=== PATIENT | male | born 1955 | race Caucasian/White ===

== ENCOUNTER 2017-08-12 11:16 | Inpatient (IN) | payer MEDICAID, OTHER ==
--- NOTE | 2017-08-12 12:27 | EDPHY ---
H & P Time Seen by Provider: 08/12/17 12:26 HPI/ROS: CHIEF COMPLAINT: Cough, mild dizziness HISTORY OF PRESENT ILLNESS: The patient presents to the ED with a 3 week history of cough, hoarseness some mild dizziness. The patient denies significant past medical history. He takes no regular medications. He is not seen a primary care provider in approximately 6 years. The patient denies fever or, abdominal pain, vomiting or diarrhea. The patient has no history of exertional chest pain or shortness of breath. The patient reports he has been housed for approximately the past 3 years. The patient does have a history of incarceration in 2003. The patient denies any alcohol use. He denies prior history of TB. The patient does report approximately 7 lb of weight loss over the course of this illness. The patient denies additional acute complaints. REVIEW OF SYSTEMS: A comprehensive 10 point review of systems is otherwise negative aside from elements mentioned in the history of present illness. Source: Patient Exam Limitations: No limitations - Medical/Surgical History PMH: Past medical history: Noncontributory - Family History Significant Family History: No pertinent family hx - Social History Smoking Status: Current every day smoker - Physical Exam Exam: General Appearance: Thin male, no acute distress Eyes: Pupils equal and round no pallor or injection ENT, Mouth: Mucous membranes moist Respiratory: There are no retractions, rhonchorous breath sounds left lung field Cardiovascular: Regular rate and rhythm Gastrointestinal: Abdomen is soft and nontender, no masses, bowel sounds normal Neurological: A&O, normal motor function, normal sensory exam, normal cranial nerves Skin: Warm and dry, no rashes Musculoskeletal: Neck is supple nontender Extremities: symmetrical, full range of motion Constitutional: Initial Vital Signs Temperature (C) 37.0 C 08/12/17 13:47 Heart Rate 99 08/12/17 13:47 Respiratory Rate 20 08/12/17 13:47 Blood Pressure 105/84 H 08/12/17 13:47 O2 Sat (%) 90 L 08/12/17 13:47 O2 Delivery Mode Room Air O2 (L/minute) 2 Allergies/Adverse Reactions: No Known Allergies Allergy (Unverified 08/12/17 13:49) Home Medications: Medication Instructions Recorded NK [No Known Home Meds] 08/12/17 Medical Decision Making - Diagnostics EKG Interpretation: EKG: Complete interpretation has been separately recorded in the [facility] archive. Summary impression: Sinus rhythm, rate 96 Imaging Results: Imaging Impressions Chest X-Ray 08/12/17 12:39 Impression: Left lung cavitary pneumonia: Query aspiration, staph pneumonia, active TB? Results called to Dr. Carlo Campos at 1:17 pm. ED Course/Re-evaluation: The patient presents to the ED with a several week history of cough and dizziness. The patient's chest x-ray does demonstrate a fairly significant left -sided pneumonia with air-fluid levels. The patient is nontoxic and stable. He is not hypotensive or tachycardic. The patient has no known history of tuberculosis however this is in the differential diagnosis. The patient was placed in a negative pressure room and had an N95 mask applied. The patient had blood cultures x2 obtained. The patient has been started on Zosyn. Consultation is made with the Internal Medicine service for admission. The patient will be admitted by Dr. Moody Spencer. I will defer to the hospitalist to consulting ID and pulmonary if needed. Initial lactic acid was 2.2. Repeat level is 1.5. The patient will be admitted to the hospital for further care. Differential Diagnosis: Differential diagnosis considered includes asthma, bronchitis, pneumonia, lung abscess, tuberculosis - Data Points Laboratory Results: Laboratory Results 08/12/17 13:25 08/12/17 13:25 08/12/17 08/12/17 08/12/17 13:25 13:25 13:25 WBC RBC Hgb Hct MCV MCH MCHC RDW Plt Count MPV Neut % (Auto) Lymph % (Auto) [place] % (Auto) Eos % (Auto) Baso % (Auto) Nucleat RBC Rel Count Absolute Neuts (auto) Absolute Lymphs (auto) Absolute Monos (auto) Absolute Eos (auto) Absolute Basos (auto) Absolute Nucleated RBC Immature Gran % Seg Neutrophils % Band Neutrophils % Lymphocytes % Monocytes % Immature Gran # Absolute Seg Neuts Absolute Band Neuts Absolute Lymphocytes Absolute Monocytes RBC/WBC/PLT Morphology Platelet Estimate VBG Lactic Acid 2.2 mmol/L H mmol/L (0.7-2.1) Sodium Potassium Chloride Carbon Dioxide Anion Gap BUN Creatinine Estimated GFR Glucose Calcium Lactate Dehydrogenase 694 IU/L H IU/L (313-618) HIV 1&2 Antibody NEGATIVE (NEGATIVE) 10/23/17 10/23/17 13:25 13:25 WBC 23.96 10^3/uL H 10^3/uL (3.80-9.50) RBC 4.36 10^6/uL L 10^6/uL (4.40-6.38) Hgb 13.9 g/dL g/dL (13.7-17.5) Hct 37.4 % L % (40.0-51.0) MCV 85.8 fL fL (81.5-99.8) MCH 31.9 pg pg (27.9-34.1) MCHC 37.2 g/dL H g/dL (32.4-36.7) RDW 13.9 % % (11.5-15.2) Plt Count 431 10^3/uL H 10^3/uL (150-400) MPV 8.7 fL fL (8.7-11.7) Neut % (Auto) Not Reported Lymph % (Auto) Not Reported [place] % (Auto) Not Reported Eos % (Auto) Not Reported Baso % (Auto) Not Reported Nucleat RBC Rel Count 0.0 % % (0.0-0.2) Absolute Neuts (auto) Not Reported Absolute Lymphs (auto) Not Reported Absolute Monos (auto) Not Reported Absolute Eos (auto) Not Reported Absolute Basos (auto) Not Reported Absolute Nucleated RBC 0.00 10^3/uL 10^3/uL (0-0.01) Immature Gran % Not Reported Seg Neutrophils % 88 % % Band Neutrophils % 7 % % Lymphocytes % 4 % % Monocytes % 1 % % Immature Gran # Not Reported Absolute Seg Neuts 21.08 10^/uL H 10^/uL (1.70-6.50) Absolute Band Neuts 1.68 10^3/uL H 10^3/uL (0.00-0.70) Absolute Lymphocytes 0.96 10^3/uL L 10^3/uL (1.00-3.00) Absolute Monocytes 0.24 10^3/uL L 10^3/uL (0.30-0.80) RBC/WBC/PLT Morphology NORMAL (NORMAL) Platelet Estimate ADEQUATE (ADEQ) VBG Lactic Acid Sodium 137 mEq/L mEq/L (134-144) Potassium 3.9 mEq/L mEq/L (3.5-5.2) Chloride 95 mEq/L L mEq/L (97-110) Carbon Dioxide 26 mEq/l mEq/l (22-31) Anion Gap 16 mEq/L mEq/L (8-16) BUN 65 mg/dL H mg/dL (7-23) Creatinine 1.5 mg/dL H mg/dL (0.7-1.3) Estimated GFR 48 Glucose 92 mg/dL mg/dL (70-100) Calcium 9.1 mg/dL mg/dL (8.5-10.4) Lactate Dehydrogenase HIV 1&2 Antibody Medications Given: Discontinued Medications Piperacillin/Tazobactam/Dextrose (Zosyn (Premix)) 100 mls @ 200 mls/hr IV EDNOW ONE PRN Reason: Protocol Stop: 08/12/17 14:19 Last Admin: 08/12/17 14:44 Dose: 100 mls Sodium Chloride (Ns) 1,600 mls @ 3,200 mls/hr 30 ml/kg infuse over 30 min ( 1600 ml) IV EDNOW ONE PRN Reason: Protocol Stop: 08/12/17 15:09 Last Admin: 08/12/17 14:45 Dose: 1,600 mls Clindamycin Phosphate/Dextrose (Cleocin 900 Mg (Premix)) 50 mls @ 100 mls/hr IV Q8HRS MASHA PRN Reason: Protocol Stop: 09/11/17 15:44 Last Admin: 08/12/17 18:34 Dose: Not Given Departure - Departure Disposition: [facility] Inpatient Acute Clinical Impression: Pneumonia Condition: Fair
--- NOTE | 2017-08-12 13:06 | CPEKG ---
Heart Rate: 96 RR Interval: 625 P-R Interval: 128 QRSD Interval: 100 QT Interval: 332 QTC Interval: 420 P [place]: 81 QRS [place]: 78 T Wave [place]: 40 EKG Severity - NORMAL ECG - EKG Impression: SINUS RHYTHM Electronically Signed By: Dixon Campos 12-Aug-2017 15:16:02
[2017-08-12 13:39] LABS: ADD DIFF? YES; ADD MORPH? NO; ADD SCAN? NO; ATYPICAL LYMPHOCYTE FLAG 20 (0-99); FRAGMENT RBC FLAG 10 (0-99); HEMATOCRIT 37.4 % (40.0-51.0); HEMOGLOBIN 13.9 g/dL (13.7-17.5); LEFT SHIFT FLG 50 (0-99); LIPEMIA HEMOLYSIS FLAG 90 (0-99); MEAN CELL HEMOGLOBIN 31.9 pg (27.9-34.1); MEAN CELL HEMOGLOBIN CONCENTR. 37.2 g/dL (32.4-36.7); MEAN CELL VOLUME 85.8 fL (81.5-99.8); MEAN PLATELET VOLUME 8.7 fL (8.7-11.7); PLATELET CLUMPS FLAG 30 (0-99); PLATELET COUNT 431 10^3/uL (150-400); RED BLOOD CELL COUNT 4.36 10^6/uL (4.40-6.38); RED CELL DISTRIBUTION WIDTH 13.9 % (11.5-15.2)
[2017-08-12 13:48] LABS: ANION GAP 16 mEq/L (8-16); CALCIUM 9.1 mg/dL (8.5-10.4); CARBON DIOXIDE 26 mEq/l (22-31); CHLORIDE 95 mEq/L (97-110); CREATININE 1.5 mg/dL (0.7-1.3); GLOMERULAR FILTRATION RATE 48; GLUCOSE 92 mg/dL (70-100); POTASSIUM 3.9 mEq/L (3.5-5.2); SODIUM 137 mEq/L (134-144)
[2017-08-12] MEDS ORDERED: PIPERACILLIN/TAZO 4.5 GM/DEX 100 ML IV ONE (13:50)
[2017-08-12 14:11] LABS: PLATELET ESTIMATE ADEQUATE (ADEQ)
[2017-08-12 14:15] LABS: LACTATE DEHYDROGENASE 694 IU/L (313-618)
[2017-08-12] MEDS ORDERED: NS 1,600 ML IV ONE (14:40)
[2017-08-12] MEDS ORDERED: ONDANSETRON 4 MG/2 ML VIAL IVP PRN (15:41)
[2017-08-12] MEDS ORDERED: ONDANSETRON DISINTEGRATING 4 MG TAB PO PRN (15:41)
[2017-08-12] MEDS ORDERED: ACETAMINOPHEN 325 MG TAB PO PRN (15:41)
[2017-08-12] MEDS ORDERED: NS 1,000 ML IV SCH (15:45)
[2017-08-12] MEDS ORDERED: CLINDAMYCIN 900 MG/DEXTROSE 50 ML IV SCH (15:45)
--- NOTE | 2017-08-12 16:35 | GHP ---
[f rep st] HISTORY AND PHYSICAL DATE OF ADMISSION: 08/12/2017 HISTORY OF PRESENT ILLNESS: The patient is a pleasant 61-year-old gentleman with minimal past medica l history, who presented with 2-1/2 weeks of malaise, cough, night sweats, and fevers. He denies tro uble with eating and coughing. He does not drink alcohol. He has had no blackout episodes. He was incarcerated in 2003. He smokes cigarettes. He has had a 7-pound weight loss. He has been tested f or HIV in the past and has been negative. He did not have hemoptysis. He does not have lymphadenopa thy. He notes some swelling in his legs. REVIEW OF SYSTEMS: Complete 10-point review of systems conducted, negative except as noted in the HP I. PAST MEDICAL HISTORY: None. HOME MEDICATIONS: None. ALLERGIES: None. SOCIAL HISTORY: Works at a local [employer]. Lives at [facility]. FAMILY HISTORY: Parents . PHYSICAL EXAMINATION: VITAL SIGNS: Temp 37, blood pressure 105/84, pulse 99, it was 105 when I was in the room, breathing 20 times a minute, 98% on room air. GENERAL: No acute distress. Thin. HEEN T: Sclerae anicteric. Oropharynx clear. Mucous membranes moist. NECK: Supple without lymphadenop athy or JVD. There is no supraclavicular lymphadenopathy. LUNGS: Show crackles and abnormal breath sounds and decreased breath sounds throughout the left lung. The right lung is clear. HEART: S1, S2, and tachycardiac. ABDOMEN: Soft, nontender, nondistended. LOWER EXTREMITIES: Trace edema bila terally. Calves nontender. SKIN: Without rash. NEUROLOGIC: Nonfocal. LABORATORY DATA: White count 23.96 with a left shift, hematocrit 37, platelets are 431,000. ABG tiffany ws a venous lactate of 2.2. Sodium 137, potassium 3.9, chloride 95, bicarb 26, BUN 65, creatinine 1. 5. LDH is elevated at 694. Chest x-ray, interpreted by me, shows near complete whiteout of the left lung. There are air-fluid levels. As a matter of fact, the apex of the lung has so many air-fluid levels it appears as if there may be bowel up there, but there is not. It is predominantly the poste rior aspect of the left upper and lower lobe. The right lungs are largely clear. EKG, interpreted by me, shows sinus at 96 with normal axis and intervals. No ST or T-wave changes. I discussed case with Dr. Carlo Campos and Dr. Tc Child. ASSESSMENT/PLAN: This is a 61-year-old gentleman who presents with severe left-sided pneumonia. 1. Pneumonia. This is concerning for necrotizing staph pneumonia versus pulmonary abscess. Also in the differential is tuberculosis. My pretest probability is low, but not zero given his times of in carceration and the air-fluid levels. It is also worth considering the patient may have an endobronc hial lesion and probably warrants CAT scan or bronchoscopy at some point during this admission or in rapid followup. I have started the patient on ceftriaxone and clindamycin given the air-fluid levels . I have discussed the possibility of methicillin-resistant Staphylococcus aureus coverage with Dr. Child. He will see the patient and decide. 2. Question tuberculosis. I have written the patient for acid-fast bacilli x3 to be sent. We will place him on respiratory precautions. 3. Sepsis. The patient has a lactate of 2.2 and tachycardia consistent with sepsis. I have ordered a repeat lactic acid for followup. He is not hypotensive. 4. Prophylaxis. Pharmacologic prophylaxis indicated. Will start low-molecular weight heparin. 5. Disposition. Inpatient status. /[id number]/MODL
--- NOTE | 2017-08-12 19:41 | GCON ---
[f rep st] CONSULTATION INPATIENT INFECTIOUS DISEASE CONSULTATION REASON FOR REFERRAL: Left-sided pneumonia. REFERRING PHYSICIAN: Moody Spencer MD HISTORY OF PRESENT ILLNESS: Patient is a 61-year-old male who has had a history of intermittent home lessness and is a chronic tobacco user, who has been housed consistently for the last 3 years. [facility], called EMS for transport to the emergency room today because he was walking a usual distance of a bout a mile and a half and he felt so weak he could not continue. He states he has been feeling wors e and worse over the last 3 weeks. He notes occasional cough and profound fatigue but denies shortne ss of breath. The patient was worked up in the emergency room and found to have a leukocytosis of 24 ,000 with a left shift. Chest x-ray showed a very large left lung infiltrate. Noncontrasted CT scan verified the infiltrate and also delineated [id number] emphysema. No definitive hilar or me diastinal mass was seen. The patient was placed on Zosyn empirically. He will be isolated to rule o ut tuberculosis given his history of homelessness and incarceration approximately 15 years ago. The patient has no known contact or history of tuberculosis. PAST MEDICAL HISTORY: Patient denies. PAST SURGICAL HISTORY: Patient denies. ANTIBIOTICS: Zosyn. ALLERGIES: No known medical allergies. SOCIAL HISTORY: The patient has a history of intermittent homelessness but has been steadily housed for the last 3 years. 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 He is a continual tobacco user and smokes 1 pa ck daily. FAMILY HISTORY: Reviewed but noncontributory. REVIEW OF SYSTEMS: Other than that detailed above in History of Present Illness, comprehensive 10-sy stem review is negative. PHYSICAL EXAMINATION: VITAL SIGNS: Temperature maximum is 37.0, temperature current is 36.8, heart rate is 99, respiratory rate is 16, blood pressure is 109/60, O2 sat is 91% on 2 L. GENERAL: The robert whittaker is a thin older male, in no acute distress. He is not toxic in appearance. He is alert and or iented x3. He has a pleasant demeanor. HEENT: Normocephalic for age. Atraumatic. No scleral icte raphael. No oral lesion or drainage from the nares. Eyes: Lids and conjunctivae within normal limits. Pupils are equal and round bilaterally. NECK: Supple. No meningismus. LUNGS: Distant breath kalen nds bilaterally. Decreased left side versus right. Good effort. HEART: Borderline tachycardic but regular. No murmur, rub, or gallop noted. No significant peripheral edema. ABDOMEN: Soft, nonten charley. No masses. SKIN: Warm and dry to the touch. No rash or lesion. MUSCULOSKELETAL: No muscle belly tenderness is noted. No joint line effusion or arthritis seen. NEURO: Cranial nerves 2-12 se em to be intact. Peripheral sensation seems intact in extremities. LABORATORY DATA: The patient has a CBC dated 08/12/17, shows a white blood cell count of 23.96, hemo globin of 13.9, hematocrit of 37.4, platelet count 431, differential is left-shifted with 88% segment ed neutrophils and 7% band forms. Serum chemistries on 08/12/17, show sodium of 137, potassium of 3. 9, chloride of 95, bicarbonate of 26, BUN of 65, and creatinine 1.5. LDH level is elevated at 694. SEROLOGIC DATA: HIV antibody is negative. MICROBIOLOGIC DATA: Patient has blood cultures dated 08/12/17, which are no growth to date. RADIOLOGIC DATA: Patient has a chest CT without contrast dated 08/12/17, which shows a diffuse left hemothorax pneumonia. No definitive hilar or mediastinal mass is seen. Also shows severe emphysema. ASSESSMENT: Severe left-sided community-acquired pneumonia in patient with underlying severe emphyse ma. Surprisingly, he is able to maintain reasonable O2 saturation levels on minimal oxygen support. Agreed with continued Zosyn monotherapy. We will attempt to obtain a sputum sample and send for nuc lear acid amplification testing at [facility] for tuberculosis rule out. Although, I think this is less likely. In the meantime, we will continue to monitor the patient for clinical improvement. PLAN: 1. Continue Zosyn monotherapy. 2. Continue airborne isolation for tuberculosis. 3. Sputum test to [facility] for DNA amplification to Mycobacterium tuberculosis. 4. Follow clinical improvement. /[id number]/MODL
[2017-08-12] MEDS: PIPERACILLIN/TAZO 3.375 GM/DEX 50 ML IV SCH (21:54)
[2017-08-13] MEDS: PIPERACILLIN/TAZO 3.375 GM/DEX 50 ML IV SCH ×2 (01:42→09:04)
[2017-08-13 04:41] LABS: ADD DIFF? YES; ADD MORPH? NO; ADD SCAN? NO; ATYPICAL LYMPHOCYTE FLAG 40 (0-99); FRAGMENT RBC FLAG 0 (0-99); HEMATOCRIT 33.7 % (40.0-51.0); LEFT SHIFT FLG 30 (0-99); LIPEMIA HEMOLYSIS FLAG 90 (0-99); MEAN CELL HEMOGLOBIN 31.6 pg (27.9-34.1); MEAN CELL HEMOGLOBIN CONCENTR. 35.6 g/dL (32.4-36.7); MEAN CELL VOLUME 88.7 fL (81.5-99.8); MEAN PLATELET VOLUME 8.7 fL (8.7-11.7); PLATELET CLUMPS FLAG 0 (0-99); PLATELET COUNT 309 10^3/uL (150-400); RED CELL DISTRIBUTION WIDTH 13.8 % (11.5-15.2)
[2017-08-13 04:50] LABS: INR 1.19 (0.83-1.16); PROTIME(PATIENT) 15.1 SEC (12.0-15.0)
[2017-08-13 05:02] LABS: ANION GAP 14 mEq/L (8-16); CARBON DIOXIDE 23 mEq/l (22-31); CHLORIDE 102 mEq/L (97-110); CREATININE 1.2 mg/dL (0.7-1.3); GLOMERULAR FILTRATION RATE > 60; GLUCOSE 84 mg/dL (70-100); HYPOCHROMIA 1+; POTASSIUM 3.7 mEq/L (3.5-5.2); SODIUM 139 mEq/L (134-144)
[2017-08-13 05:03] LABS: PLATELET ESTIMATE ADEQUATE (ADEQ)
[2017-08-13 06:30] LABS: COLOR YELLOW; LEUKOCYTE ESTERASE,URINE NEGATIVE (NEGATIVE); NITRITE,URINE NEGATIVE (NEGATIVE)
[2017-08-13] MEDS ORDERED: cefTRIAXone 1 GM in D5W 50 ML IV SCH (09:00)
[2017-08-13] MEDS: ENOXAPARIN 40 MG/0.4 ML SYR SC SCH (09:04)
--- NOTE | 2017-08-13 09:13 | HOSPPROG ---
Hospitalist Progress Note Assessment/Plan: 61 yo M w severe L sided pneumonia sepsis: presnt on admit lactate normalized septic physiology has resolved pneumonia: severe pneumococcal pneumonia on zosyn may be reasonable to transition to ceftriaxone ?TB: radiology made this call primarily on basis of air flid levels suggestive of cavitary lesions these are actually bullae from his sever copd I think it is likely safe to dc TB rule out but will verify w ID CODP: severe start combivent not wheezing, therefore no steroids proph: LMWH dispo: inpt Subjective: blood cultures + for strep pneumo. case d/w dr nevarez. ct images reviewed/interpreted by me Objective: Vital Signs Temp Pulse Resp BP Pulse Ox 36.4 C 76 16 95/55 L 93 08/13/17 07:26 08/13/17 07:26 08/13/17 07:26 08/13/17 07:26 08/13/17 07:26 Laboratory Results 08/13/17 04:18 08/13/17 04:18 08/12/17 08/13/17 08/14/17 05:59 05:59 05:59 Intake Total 1600 Output Total 300 450 Balance 1300 -450 PT 15.1 SEC (12.0-15.0) H 08/13/17 04:18 INR 1.19 (0.83-1.16) H 08/13/17 04:18 - Physical Exam Constitutional: no apparent distress, appears nourished Eyes: PERRL, anicteric sclera Ears, Nose, Mouth, Throat: moist mucous membranes, hearing normal Cardiovascular: regular rate and rhythym, no murmur, rub, or gallop Respiratory: no respiratory distress, other (essentially absent breath sounds on L) Gastrointestinal: normoactive bowel sounds, soft, non-tender abdomen Genitourinary: no bladder fullness, No cr in urethra Skin: warm, normal color Musculoskeletal: full muscle strength, no muscle tenderness Neurologic: AAOx3 ICD10 Worksheet Patient Problems: Problems Problem Status Onset Pneumonia Acute
--- NOTE | 2017-08-13 09:15 | PDMN ---
Medical Necessity Medical necessity: M160 sepsis and other febrile illness -lactate of 2.2, tachycardia, with PNA- concerning for necrotizing staph pna vs. pulm abscess, weakness, leukocytosis, CT shows infiltrate with mod-severe emphysema, R/O TB,
--- NOTE | 2017-08-13 11:09 | PCMIDPN ---
Assessment/Plan: Assessment/Plan: 1. Pneumococcal bacteremia with extensive left lung pneumonia: - CXR and CT chest images reviewed - Currently on zosyn--will d/c - Given positive blood cx 4/4 bottles with GPC in chains/pneumococcus ,will change to Ceftriaxone + vanco until susceptibilites are resulted - If deemed sensitive to ceftraixone then can d/c vanco -will check f/u blood cx in am -records reviewed in [facility]. he has not been to any of the institutions that are a part of that. - HIV negative. - Micro: 08/12/17: blood cx: 4/4 bottles with pneumococcus/GPC in chains 08/12/17: sputum sent to [facility] [place] 3.375gm q6- 08/12/17 Subjective: afebrile. feeling a little better today. /coughing quite a bit. he states he isn 't always able to bring up phelgm. denies bloody sputum. describes it as mostly clear. admits to 16 pound weight loss over 3 weeks associated with drenching night sweats.. denies other sick contacts around him. Objective: Vital Signs Temp Pulse Resp BP Pulse Ox 36.4 C 76 16 95/55 L 93 08/13/17 07:26 08/13/17 07:26 08/13/17 07:26 08/13/17 07:26 08/13/17 07:26 Laboratory Results 08/13/17 04:18 08/13/17 04:18 08/12/17 08/13/17 08/14/17 05:59 05:59 05:59 Intake Total 1600 Output Total 300 450 Balance 1300 -450 - Physical Exam General Appearance: alert, no apparent distress EENT: other (upper adn lower dentures. no thrush) Respiratory: coarse breath sounds (with decreased bs on left) Cardiac/Chest: regular rate, rhythm Extremities: No swelling Abdomen: normal bowel sounds, non-tender, soft, No distended Skin: No erythema ICD10 Worksheet Patient Problems: Problems Problem Status Onset Pneumonia Acute
[2017-08-13] MEDS ORDERED: VANCOMYCIN HCL/NORMAL SALINE 250 ML IV SCH (11:30)
[2017-08-13] MEDS: IPRATROPIUM/ALBUTEROL 4GM MDI IH SCH ×3 (11:44→21:19)
[2017-08-13] MEDS: cefTRIAXone 2 GM in D5W 50 ML IV SCH (12:00)
[2017-08-13] MEDS: VANCOMYCIN HCL/NORMAL SALINE 250 ML IV SCH (14:13)
[2017-08-13] MEDS: NS 1,000 ML IV SCH ×2 (14:14→21:19)
--- NOTE | 2017-08-13 15:13 | ASMTCASEMG ---
Living Arrangements What is your living Answers: Alone arrangement? Who do you live with? Type Of Residence What kind of residence do Answers: House you live in? Discharge Plan Comments Coordination Status Comments Notes: Pt is a 61 y/o man admitted w/ pneumonia. Pt is currently on droplet precaution. PT and OT are recommending home independent. Anticipates that pt will not have any needs at time of d/c. CM available for changes. Date Signed: 08/13/2017 03:12 PM Electronically Signed By:MARINA Lucero
[2017-08-13] MEDS: HYDROmorphONE/DILAUDID 1 MG/ML INJ IVP PRN (16:16)
[2017-08-14] MEDS: VANCOMYCIN HCL/NORMAL SALINE 250 ML IV SCH (00:01)
[2017-08-14] MEDS: NS 1,000 ML IV SCH ×2 (03:20→13:55)
[2017-08-14] MEDS: IPRATROPIUM/ALBUTEROL 4GM MDI IH SCH ×4 (05:41→20:55)
[2017-08-14] MEDS: HYDROmorphONE/DILAUDID 1 MG/ML INJ IVP PRN ×4 (05:53→22:02)
[2017-08-14 06:38] LABS: ADD DIFF? YES; ADD MORPH? NO; ADD SCAN? NO; ATYPICAL LYMPHOCYTE FLAG 40 (0-99); FRAGMENT RBC FLAG 0 (0-99); HEMATOCRIT 35.9 % (40.0-51.0); HEMOGLOBIN 12.7 g/dL (13.7-17.5); LEFT SHIFT FLG 40 (0-99); LIPEMIA HEMOLYSIS FLAG 90 (0-99); MEAN CELL HEMOGLOBIN 32.2 pg (27.9-34.1); MEAN CELL HEMOGLOBIN CONCENTR. 35.4 g/dL (32.4-36.7); MEAN CELL VOLUME 90.9 fL (81.5-99.8); MEAN PLATELET VOLUME 8.9 fL (8.7-11.7); PLATELET CLUMPS FLAG 0 (0-99); PLATELET COUNT 344 10^3/uL (150-400); RED BLOOD CELL COUNT 3.95 10^6/uL (4.40-6.38); RED CELL DISTRIBUTION WIDTH 14.5 % (11.5-15.2)
[2017-08-14 06:49] LABS: ALANINE AMINOTRANSFERASE 37 IU/L (21-72); ALBUMIN 1.8 g/dL (3.5-5.0); ALKALINE PHOSPHATASE 199 IU/L (38-126); ANION GAP 7 mEq/L (8-16); ASPARTATE AMINOTRANSFERASE 43 IU/L (17-59); BILIRUBIN,TOTAL 0.2 mg/dL (0.1-1.4); BILIRUBIN-CONJUGATED 0.2 mg/dL (0.0-0.5); CALCIUM 7.9 mg/dL (8.5-10.4); CARBON DIOXIDE 22 mEq/l (22-31); CHLORIDE 110 mEq/L (97-110); GLOMERULAR FILTRATION RATE > 60; GLUCOSE 79 mg/dL (70-100); POTASSIUM 3.8 mEq/L (3.5-5.2); SODIUM 139 mEq/L (134-144); TOTAL PROTEIN 4.2 g/dL (6.3-8.2)
[2017-08-14 07:09] LABS: PLATELET ESTIMATE ADEQUATE (ADEQ)
[2017-08-14 07:11] LABS: MACROCYTES 1+; POLYCHROMASIA 1+
[2017-08-14] MEDS: ENOXAPARIN 40 MG/0.4 ML SYR SC SCH (08:32)
[2017-08-14] MEDS: cefTRIAXone 2 GM in D5W 50 ML IV SCH (08:32)
[2017-08-14] MEDS: NICOTINE 21 MG/24 HR PATCH TD SCH (08:33)
--- NOTE | 2017-08-14 09:30 | HOSPPROG ---
Hospitalist Progress Note Assessment/Plan: 61 yo M w severe L sided pneumonia sepsis: presnt on admit lactate normalized septic physiology has resolved pneumonia: severe pneumococcal pneumonia ceftriaxone antibiotic day [address] neg for hilar mass will pursue bronchoscopy when TB ruled out ?TB: radiology made this call primarily on basis of air flid levels suggestive of cavitary lesions these are actually bullae from his sever copd I think it is likely safe to dc TB rule out but will verify w ID 1st AFB neg weight loss: check prealbumin ensure started dietary to see 16 lb weight loss likely meet the definition of SPCM CODP: severe start combivent not wheezing, therefore no steroids proph: LMWH dispo: inpt Subjective: case d/w Dr Garcia. 1st AFB neg Objective: Vital Signs Temp Pulse Resp BP Pulse Ox 36.4 C 80 16 104/70 91 L 08/14/17 08:00 08/14/17 08:17 08/14/17 08:17 08/14/17 08:00 08/14/17 08:17 Laboratory Results 08/14/17 04:15 08/14/17 04:15 08/13/17 08/14/17 08/15/17 05:59 05:59 05:59 Intake Total 1600 2075 Output Total 300 450 Balance 1300 1625 PT 15.1 SEC (12.0-15.0) H 08/13/17 04:18 INR 1.19 (0.83-1.16) H 08/13/17 04:18 - Physical Exam Constitutional: no apparent distress, appears nourished Eyes: PERRL, anicteric sclera Ears, Nose, Mouth, Throat: moist mucous membranes, hearing normal Cardiovascular: regular rate and rhythym, no murmur, rub, or gallop Respiratory: no respiratory distress, other (crackles and decreased breath sounds throughout L lung) Gastrointestinal: normoactive bowel sounds, soft, non-tender abdomen Genitourinary: no bladder fullness, No cr in urethra Skin: warm, normal color Musculoskeletal: full muscle strength, no muscle tenderness Neurologic: AAOx3 ICD10 Worksheet Patient Problems: Problems Problem Status Onset Pneumonia Acute
--- NOTE | 2017-08-14 14:43 | PCMIDPN ---
Assessment/Plan: # Severe L sided pneumococcal PNA complicated by bacteremia. Underlying severe COPD. Post susceptible pneumococcus. WBC trending down. --dc vancomycin --continue ceftriaxone --repeat blood cultures collected today and are pending --also r/o TB, continue isolation until TB PCR returns Medications abx #3 Ceftriaxone 2 g IV q.day, # 2 Vancomycin IV Subjective: Patient reports feeling improved., appetite is okay, no diarrhea Objective: Vital Signs Temp Pulse Resp BP Pulse Ox 36.4 C 85 20 104/70 90 L 08/14/17 08:00 08/14/17 11:55 08/14/17 11:55 08/14/17 08:00 08/14/17 11:55 Microbiology 08/14/17 05:50 Mycobacterial Smear (LITO) - Final Sputum, Expectorated 08/14/17 Unknown Mycobacterial Smear (LITO) - Final Sputum, Expectorated Laboratory Results 08/14/17 04:15 08/14/17 04:15 08/13/17 08/14/17 08/15/17 05:59 05:59 05:59 Intake Total 1600 2075 Output Total 300 450 Balance 1300 1625 - Physical Exam General Appearance: alert, no apparent distress, thin EENT: poor dentition Respiratory: crackles (L base), other (decreased bs throughout), No accessory muscle use Cardiac/Chest: regular rate, rhythm Extremities: No pedal edema Abdomen: normal bowel sounds, non-tender, soft Skin: pallor, No rash Neuro/Psych: alert, normal mood/affect, oriented x 3 ICD10 Worksheet Patient Problems: Problems Problem Status Onset Pneumonia Acute
[2017-08-15] MEDS ORDERED: IPRATROPIUM/ALBUTEROL 3 ML DEYVIAL IH PRN (00:04)
[2017-08-15] MEDS ORDERED: IPRATROPIUM/ALBUTEROL 3 ML DEYVIAL ONE (00:28)
--- NOTE | 2017-08-15 02:52 | HOSPPROG ---
Hospitalist Progress Note Assessment/Plan: Cross cover: Called by RN about increasing O2 needs. Patient requiring 8L via facemask to maintain sats. At the time of my evaluation patient was mildly tachypneic with mildly increased work of breathing, not in respiratory distress. No clear wheezing on exam but limited air movement and clear splinting noted with attempted deep breathing. O2 requirement and symptoms improved with duoneb x1. CXR fairly stable compared to prior on my read. I suspect tachypnea and splinting are causing Combivent to be sub-optimal. Will change to scheduled duonebs for now and hold off on starting steroids due to lack of evidence of yaw exacerbation and significant ongoing infectious process. Objective: Vital Signs Temp Pulse Resp BP Pulse Ox 36.5 C 84 19 127/78 H 95 08/14/17 23:44 08/15/17 00:33 08/15/17 00:33 08/14/17 23:44 08/15/17 00:33 Microbiology 08/12/17 14:21 Blood Culture - Final Blood Streptococcus Pneumoniae 08/14/17 05:50 Mycobacterial Smear (LITO) - Final Sputum, Expectorated 08/14/17 Unknown Mycobacterial Smear (LITO) - Final Sputum, Expectorated Laboratory Results 08/14/17 04:15 08/14/17 04:15 08/13/17 08/14/17 08/15/17 05:59 05:59 05:59 Intake Total 1600 2075 460 Output Total 300 450 Balance 1300 1625 460 PT 15.1 SEC (12.0-15.0) H 08/13/17 04:18 INR 1.19 (0.83-1.16) H 08/13/17 04:18 ICD10 Worksheet Patient Problems: Problems Problem Status Onset Pneumonia Acute
[2017-08-15 04:31] LABS: ADD DIFF? YES; ADD MORPH? NO; ADD SCAN? NO; ATYPICAL LYMPHOCYTE FLAG 30 (0-99); FRAGMENT RBC FLAG 0 (0-99); HEMOGLOBIN 11.6 g/dL (13.7-17.5); LEFT SHIFT FLG 30 (0-99); LIPEMIA HEMOLYSIS FLAG 90 (0-99); MEAN CELL HEMOGLOBIN 31.3 pg (27.9-34.1); MEAN CELL HEMOGLOBIN CONCENTR. 34.1 g/dL (32.4-36.7); MEAN CELL VOLUME 91.6 fL (81.5-99.8); MEAN PLATELET VOLUME 8.5 fL (8.7-11.7); PLATELET CLUMPS FLAG 0 (0-99); PLATELET COUNT 304 10^3/uL (150-400); RED BLOOD CELL COUNT 3.71 10^6/uL (4.40-6.38); RED CELL DISTRIBUTION WIDTH 14.4 % (11.5-15.2)
[2017-08-15 04:57] LABS: HYPOCHROMIA 1+; MACROCYTES 1+; PLATELET ESTIMATE ADEQUATE (ADEQ)
[2017-08-15 05:02] LABS: ANION GAP 8 mEq/L (8-16); CALCIUM 7.9 mg/dL (8.5-10.4); CARBON DIOXIDE 24 mEq/l (22-31); CHLORIDE 108 mEq/L (97-110); CREATININE 0.8 mg/dL (0.7-1.3); GLOMERULAR FILTRATION RATE > 60; GLUCOSE 90 mg/dL (70-100); POTASSIUM 3.5 mEq/L (3.5-5.2); SODIUM 140 mEq/L (134-144)
[2017-08-15 05:09] LABS: PREALBUMIN 5.2 mg/dL (17.6-36.0)
[2017-08-15] MEDS ORDERED: IPRATROPIUM/ALBUTEROL 3 ML DEYVIAL IH SCH (06:00)
[2017-08-15] MEDS: HYDROmorphONE/DILAUDID 1 MG/ML INJ IVP PRN ×4 (08:01→20:52)
[2017-08-15] MEDS: cefTRIAXone 2 GM in D5W 50 ML IV SCH (08:03)
[2017-08-15] MEDS: ENOXAPARIN 40 MG/0.4 ML SYR SC SCH (08:03)
[2017-08-15] MEDS: NICOTINE 21 MG/24 HR PATCH TD SCH (08:03)
[2017-08-15] MEDS ORDERED: ALBUTEROL 3 ML DEYVIAL IH PRN (11:04)
--- NOTE | 2017-08-15 11:04 | HOSPPROG ---
Hospitalist Progress Note Assessment/Plan: 61 yo M now with multi-focal b/l PNA sepsis: secondary to pneumococcal PNA with bacteremia lactate normalized septic physiology has resolved pneumonia: severe pneumococcal pneumonia with positive BCxs, had increased O2 needs overnight from 2 LPM to [address] today cont ceftriaxone antibiotic day 02/01 discussed with pulm, bronch in am ?TB: air fluid levels on CT suggestive of cavitary lesions, likely bullae due to emphysema 2/3 AFB neg, can d/c TB r/o weight loss / SPCM: prealbumin low ensure started dietary to see CODP: severe cont duonebs, schedule QID with prn Alb nebs IV solumedrol per pulm will need Rx's at dc and likely home O2 Tobacco abuse: encourage cessation, especially if needs home O2 proph: LMWH dispo: inpt Subjective: Pt feels "15% better" than on admission. Denies fevers/chills. Still with productive cough. Describes himself as a stubborn smoker, has not taken any treatment for his severe copd in past. Does not plan to quit smoking. Objective: Vital Signs Temp Pulse Resp BP Pulse Ox 37.0 C 90 18 122/74 H 93 08/15/17 07:24 08/15/17 07:24 08/15/17 07:24 08/15/17 07:24 08/15/17 08:10 Microbiology 08/14/17 07:35 Blood Culture - Final Blood 08/12/17 14:21 Blood Culture - Final Blood Streptococcus Pneumoniae 08/14/17 05:50 Mycobacterial Smear (LITO) - Final Sputum, Expectorated 08/14/17 Unknown Mycobacterial Smear (LITO) - Final Sputum, Expectorated Laboratory Results 08/15/17 04:23 08/15/17 04:23 08/14/17 08/15/17 08/16/17 05:59 05:59 05:59 Intake Total 2075 460 Output Total 450 Balance 1625 460 PT 15.1 SEC (12.0-15.0) H 08/13/17 04:18 INR 1.19 (0.83-1.16) H 08/13/17 04:18 - Physical Exam Constitutional: chronically ill appearing Eyes: PERRL Ears, Nose, Mouth, Throat: moist mucous membranes Cardiovascular: regular rate and rhythym, no murmur, rub, or gallop Respiratory: no respiratory distress, inspiratory crackles Gastrointestinal: normoactive bowel sounds, soft, non-tender abdomen Skin: warm Musculoskeletal: full muscle strength Neurologic: AAOx3 Psychiatric: interacting appropriately ICD10 Worksheet Patient Problems: Problems Problem Status Onset Pneumonia Acute
[2017-08-15] MEDS ORDERED: IOPAMIDOL (ISOVUE-300) 100 ML BTL ONE (11:27)
[2017-08-15] MEDS: IPRATROPIUM/ALBUTEROL 3 ML DEYVIAL IH SCH ×3 (11:31→21:15)
--- NOTE | 2017-08-15 14:48 | GCON ---
[f rep st] CONSULTATION CHEST CONSULTATION REASON FOR CONSULTATION: Pneumococcal pneumonia, severe chronic obstructive pulmonary disease. HISTORY OF PRESENT ILLNESS: The patient is a very pleasant 61-year-old white male without past medic al history. He was admitted on 08/12/2017 with complaints of malaise, cough and night sweats. He wa s initially admitted and diagnosed with significant pneumonia. His blood cultures were subsequently positive for strep pneumo. Since this hospitalization he has made minimal improvement. He has contin ue to cough excessively and last night required increase in his oxygen requirements. Repeat CT scan of the chest showed no significant improvement in his extensive left-sided pneumonia and a hint of a new right lower lobe pneumonia. PAST MEDICAL HISTORY: None. PAST SURGICAL HISTORY: None. ALLERGIES: No known allergies medications. SOCIAL HISTORY: He is a 50+ pack-year smoker and continues to smoke. No significant alcohol use. W ork history: He works in a local [employer] shop. MEDICATIONS: He is currently not on any medications. PHYSICAL EXAM: VITAL SIGNS: Blood pressure 122/74, pulse 84, respirations 26, temperature 37.0, oxy gen saturation 92% on 4 L. GENERAL: He is a thin, somewhat cachectic appearing 61-year-old white dane williamson who is resting comfortably on supplemental oxygen. HEENT: Eyes: EDU EOMI. Throat shows no angelo thema or tonsillar hypertrophy. NECK: Supple. No cervical adenopathy. HEART: Regular rate and rh ythm with a 2/6 systolic murmur left sternal border without radiation. LUNGS: Diminished breath kalen nds. Increased crackles on the left. There is significant prolongation of the expiratory phase. AB DOMEN: Soft, nontender. Bowel sounds are present in all 4 quadrants. EXTREMITIES: No clubbing, cy anosis, or edema. LABORATORIES: White count 14.4, hemoglobin 11, hematocrit 34, platelet count 304. Sodium 140, potas sium 3.5, chloride 108, CO2 24, BUN 21, creatinine 0.8, glucose is 90. HIV is negative. Blood cultu re positive for strep pneumonia. CT scan of the chest shows extensive bullous emphysema. He has a s mall right-sided pleural effusion. His left-sided pneumonia is mostly unchanged. IMPRESSION: 1. Severe bolus emphysema. 2. Extensive pneumococcal pneumonia. 3. Pleural effusion. RECOMMENDATIONS: 1. Agree with current antibiotic coverage. 2. Perform fiberoptic bronchoscopy tomorrow. 3. Will start intravenous steroids. 4. Continue frequent nebulized treatments. /[id number]/MODL
--- NOTE | 2017-08-15 16:24 | PCMIDPN ---
Assessment/Plan: Assessment: Left-sided pneumonia-with bacteremia secondary to Streptococcus pneumoniae. Patient is doing slightly better on IV ceftriaxone. Still needs significant O2 support. Plan: 1. Continue IV ceftriaxone at current dose. 2. Follow clinical course. 3. Follow up repeat blood cultures. Subjective: Patient is resting comfortably in his hospital bed. On 4 L of oxygen per nasal cannula. States he feels slightly improved. Not much in the way of cough. Still feels very weak. Objective: Ceftriaxone # 2 Vital Signs Temp Pulse Resp BP Pulse Ox 36.9 C 84 18 125/76 H 92 08/15/17 15:51 08/15/17 15:51 08/15/17 15:51 08/15/17 15:51 08/15/17 15:51 Microbiology 08/14/17 07:35 Blood Culture - Final Blood 08/12/17 14:21 Blood Culture - Final Blood Streptococcus Pneumoniae 08/14/17 05:50 Mycobacterial Smear (LITO) - Final Sputum, Expectorated 08/14/17 Unknown Mycobacterial Smear (LITO) - Final Sputum, Expectorated Laboratory Results 08/15/17 04:23 08/15/17 04:23 08/14/17 08/15/17 08/16/17 05:59 05:59 05:59 Intake Total 2075 460 Output Total 450 Balance 1625 460 - Physical Exam General Appearance: WD/WN, alert, no apparent distress, thin Respiratory: lungs clear, normal breath sounds, crackles (Left side), No wheezing Cardiac/Chest: regular rate, rhythm, No tachycardia Skin: normal color, warm/dry, No rash Neuro/Psych: alert, normal mood/affect, oriented x 3 ICD10 Worksheet Patient Problems: Problems Problem Status Onset Pneumonia Acute
[2017-08-15] MEDS: methylPREDNISolone SOD SUCC 125 MG/2 ML VIAL IVP SCH ×2 (17:37→23:47)
[2017-08-16 04:52] LABS: ADD DIFF? YES; ADD MORPH? NO; ADD SCAN? NO; ATYPICAL LYMPHOCYTE FLAG 20 (0-99); FRAGMENT RBC FLAG 0 (0-99); HEMATOCRIT 31.8 % (40.0-51.0); HEMOGLOBIN 11.2 g/dL (13.7-17.5); LEFT SHIFT FLG 30 (0-99); LIPEMIA HEMOLYSIS FLAG 90 (0-99); MEAN CELL HEMOGLOBIN 31.9 pg (27.9-34.1); MEAN CELL HEMOGLOBIN CONCENTR. 35.2 g/dL (32.4-36.7); MEAN CELL VOLUME 90.6 fL (81.5-99.8); MEAN PLATELET VOLUME 8.6 fL (8.7-11.7); PLATELET CLUMPS FLAG 0 (0-99); PLATELET COUNT 341 10^3/uL (150-400); RED BLOOD CELL COUNT 3.51 10^6/uL (4.40-6.38); RED CELL DISTRIBUTION WIDTH 14.2 % (11.5-15.2)
[2017-08-16] MEDS: IPRATROPIUM/ALBUTEROL 3 ML DEYVIAL IH SCH ×4 (05:20→20:56)
[2017-08-16 05:22] LABS: HYPOCHROMIA 1+; PLATELET ESTIMATE ADEQUATE (ADEQ); POLYCHROMASIA 1+; TOXIC GRANULATION PRESENT
[2017-08-16] MEDS: methylPREDNISolone SOD SUCC 125 MG/2 ML VIAL IVP SCH ×3 (06:03→21:36)
[2017-08-16] MEDS: cefTRIAXone 2 GM in D5W 50 ML IV SCH (09:44)
[2017-08-16] MEDS: NICOTINE 21 MG/24 HR PATCH TD SCH (09:45)
--- NOTE | 2017-08-16 09:58 | HOSPPROG ---
Hospitalist Progress Note Assessment/Plan: 61 yo M now with multi-focal b/l PNA sepsis: secondary to pneumococcal PNA with bacteremia lactate normalized septic physiology has resolved pneumococcal bacteremia secondary to community acquired pneumonia: severe pneumococcal pneumonia, currently on [address] yesterday personally reviewed and interpreted- severe bullous emphysema with b/l infiltrates, worse on left cont ceftriaxone antibiotic day 03/03 discussed with pulm, bronch today. weight loss / SPCM: prealbumin low ensure started dietary to see CODP: severe cont duonebs, schedule QID with prn Alb nebs IV solumedrol per pulm, will wean dose a bit, still no wheezing on exam will need Rx's at dc and likely home O2 Tobacco abuse: encourage cessation, especially if needs home O2 proph: LMWH held today for procedure dispo: inpt Subjective: Pt is hungry, NPO for bronch. Still coughing, a little SOB. No CP , no fevers. Objective: Vital Signs Temp Pulse Resp BP Pulse Ox 36.6 C 75 20 122/79 H 93 08/16/17 07:30 08/16/17 07:30 08/16/17 07:30 08/16/17 07:30 08/16/17 07:30 Microbiology 08/14/17 07:35 Blood Culture - Final Blood Laboratory Results 08/16/17 04:33 08/15/17 04:23 08/15/17 08/16/17 08/17/17 05:59 05:59 05:59 Intake Total 460 Balance 460 PT 15.1 SEC (12.0-15.0) H 08/13/17 04:18 INR 1.19 (0.83-1.16) H 08/13/17 04:18 - Physical Exam Constitutional: no apparent distress Eyes: PERRL Ears, Nose, Mouth, Throat: moist mucous membranes Cardiovascular: regular rate and rhythym Respiratory: no respiratory distress, reduced air movement, inspiratory crackles Gastrointestinal: normoactive bowel sounds, soft, non-tender abdomen Skin: warm Musculoskeletal: generalized weakness Neurologic: AAOx3 Psychiatric: interacting appropriately ICD10 Worksheet Patient Problems: Problems Problem Status Onset Pneumonia Acute
[2017-08-16] MEDS: ENOXAPARIN 40 MG/0.4 ML SYR SC SCH (10:21)
[2017-08-16] MEDS ORDERED: fentaNYL 100 MCG/2 ML INJ ONE (14:00)
[2017-08-16] MEDS ORDERED: LIDOCAINE 2% JELLY 5 ML TUBE ONE (14:00)
[2017-08-16] MEDS ORDERED: LIDOCAINE 1% 300 MG/30 ML SDV ONE (14:00)
[2017-08-16] MEDS ORDERED: ALBUTEROL 3 ML DEYVIAL ONE (14:00)
[2017-08-16] MEDS ORDERED: MIDAZOLAM 2 MG/2 ML VIAL ONE (14:00)
[2017-08-16] MEDS ORDERED: NS 500 ML IV ONE (14:07)
--- NOTE | 2017-08-16 14:17 | PDPROPOC ---
Sedation Plan of Care Sedation Plan of Care: vital signs stable, mental status noted, patient educated of risks, benefits, alternatives, patient can tolerate sedation ASA Classification: ASA 2 Planned drugs: fentanyl, midazolam Mallampati Score: Class 2 Mallampati Reference Image: Patient passed 3-3-2 rule?: Yes
--- NOTE | 2017-08-16 14:19 | SOAPPROG ---
SOAP Progress Note Assessment/Plan: Assessment: * COPD * Diffuse Left pneumonia * Resp failure Plan: Bronchoscopy Continue current abx Subjective: Still with some dyspnea Objective: Vital Signs Temp Pulse Resp BP Pulse Ox 37.1 C 79 18 130/83 H 91 L 08/16/17 14:03 08/16/17 14:03 08/16/17 14:03 08/16/17 14:03 08/16/17 14:03 Laboratory Results 08/16/17 04:33 08/15/17 04:23 08/15/17 08/16/17 08/17/17 05:59 05:59 05:59 Intake Total 460 Balance 460 PT 15.1 SEC (12.0-15.0) H 08/13/17 04:18 INR 1.19 (0.83-1.16) H 08/13/17 04:18 Physical Exam - Physical Exam General Appearance: alert, no apparent distress, moderate distress EENT: PERRL/EOMI, pharynx normal Neck: non-tender, full range of motion, supple, normal inspection Respiratory: crackles (increased left), prolonged expiration, No wheezing Cardiac/Chest: normal peripheral pulses, regular rate, rhythm Peripheral Pulses: 2+: carotid (R), carotid (L), femoral (R), femoral (L), dorsalis-pedis (R), dorsalis-pedis (L) Abdomen: normal bowel sounds, non-tender, soft Male Genitalia: deferred Rectal: deferred Skin: normal color, warm/dry Neuro/Psych: no motor/sensory deficits, alert, normal mood/affect, oriented x 3 ICD10 Worksheet Patient Problems: Problems Problem Status Onset Pneumonia Acute
--- NOTE | 2017-08-16 14:33 | PCMIDPN ---
Assessment/Plan: Assessment/Plan: * Invasive pneumococcal disease due to severe left lower lobe pneumonia which may have necrotizing element with small abscess formation within bulla: Repeat blood cultures show clearing of bacteremia. Plans for bronchoscopy later today to assess for any bronchial obstructive lesions. Continue ceftriaxone. Anticipate that patient will need longer of duration of therapy based on air- fluid levels being present and extent of disease. Likely this will extend to 4 weeks in duration with final determination based on clinical course and radiographic findings over time. 08/16/17 14:30 Subjective: Patient feels better without significant cough or chest pain. Objective: Vital Signs Temp Pulse Resp BP Pulse Ox 37.1 C 79 18 130/83 H 91 L 08/16/17 14:03 08/16/17 14:03 08/16/17 14:03 08/16/17 14:03 08/16/17 14:03 Laboratory Results 08/16/17 04:33 08/15/17 04:23 08/15/17 08/16/17 08/17/17 05:59 05:59 05:59 Intake Total 460 Balance 460 Ceftriaxone # 3 Blood cultures 08/14/[address] scan of chest 08/15/2017 with significant left-sided consolidation with air fluid levels present within scattered bulla, right-sided effusion present - Physical Exam General Appearance: alert, no apparent distress, non-toxic EENT: No scleral icterus, No conjunctival petechiae Respiratory: bronchial breath sounds (Lower half of lung field with egophony) Cardiac/Chest: regular rate, rhythm Extremities: No inflammation Abdomen: non-tender, No distended Skin: No embolic lesions ICD10 Worksheet Patient Problems: Problems Problem Status Onset Pneumonia Acute
--- NOTE | 2017-08-16 14:39 | BVPULMO ---
[facility]- Pulmonology Patient Name: Janusz Marmolejo Procedure Date: 08/16/2017 2:17 PM Patient Type: Inpatient Attending MD/ER Physician: Jem Fonseca MD Procedure: Bronchoscopy Indications: Left upper lobe bacterial pneumonia, Left lower lobe bacterial pneumonia, Right lower lobe bacterial pneumonia Providers: Jem Fonseca MD Medicines: Midazolam 5 mg IV, Fentanyl 125 mcg IV, Lidocaine 4% via nebulizer with Albuter ol 2.5 mg, Lidocaine 1% applied to cords 2 mL, Lidocaine 1% subglottic space 4 mL, Oxygen 5 L/min Complications: No immediate complications Procedure: After informed consent, a time out was performed. N95 masks were worn, and the procedure was done in a negative pressure room. The patient was given appropria te topical anesthesia and intravenous sedation. The fiberopic bronchoscope was pas sed via a bite block orally into the larynx and subsequently into the lower trachea bronchial tree. Throughout the procedure, the patient's blood pressure, pulse, and oxygen saturations were monitored continuously. The Bronchoscope (Video) was introduced through the mouth and advanced to the tracheobronchial tree of both lungs. The procedure was accomplished without difficulty. The patient tolerated the procedure well. The total duration of the procedure was 16 minutes. Findings: The nasopharynx/oropharynx appears normal. The larynx appears normal. The vocal cords appear normal. The subglottic space is normal. The trachea is of normal caliber. The hakeem is sharp. The tracheobronchial tree of the right lung was examined to at least the first subsegmental level. Bronchial mucosa and anatomy in the right lung are normal; there are no endobronchial lesions, and no secretion s. Left Lung Abnormalities: Mucous, plugging the airway, was found in the left low er lobe. The mucous was copious and mucopurulent. The underlying mucosa is normal. BAL was performed in the LLL anterior medial segments (B7 & B8) and in the LLL late ral basal segments (B9) of the lung and sent for cell count, bacterial culture, vir al smears & culture, and fungal & AFB analysis and cytology, aerobic culture, AFB analysis & culture and fungal analysis. 60 mL of fluid were instilled. 40 mL we re returned. The return was cloudy and turbid. There were no mucoid plugs in the r eturn fluid. Post Op Diagnosis: - Left upper lobe bacterial pneumonia - Left lower lobe bacterial pneumonia - Right lower lobe bacterial pneumonia - The right lung was normal. - A mucous plug was found in the left lower lobe. - Bronchoalveolar lavage was performed. - Infiltrate Estimated Blood Loss: Estimated blood loss: none. Recommendation: - Await BAL results. - Await BAL results. Attending Participation: I personally performed the entire procedure. Jem Fonseca MD Jem Fonseca MD 08/16/2017 2:39:38 PM This report has been signed electronicallyThomas MD Marian Number of Addenda: 0 Note Initiated On: 08/16/2017 2:17 PM [email or web address]
--- NOTE | 2017-08-16 15:49 | ASMTCMCOM ---
CM Note CM Note Notes: Dc needs unclear, pt will likely be independent but may need IV antibiotics. Pt has been screened for Medicaid, CM w/f. Date Signed: 08/16/2017 03:48 PM Electronically Signed By:Rosi Lacey RN
[2017-08-16] MEDS: oxyCODONE IR 5 MG TAB PO PRN ×2 (18:36→23:01)
[2017-08-17] MEDS: IPRATROPIUM/ALBUTEROL 3 ML DEYVIAL IH SCH ×4 (06:04→21:23)
[2017-08-17] MEDS: oxyCODONE IR 5 MG TAB PO PRN ×3 (06:05→23:04)
[2017-08-17] MEDS: methylPREDNISolone SOD SUCC 125 MG/2 ML VIAL IVP SCH ×2 (06:05→14:18)
--- NOTE | 2017-08-17 08:33 | HOSPPROG ---
Hospitalist Progress Note Assessment/Plan: 61 yo M with severe bullous emphysema a/w multi-focal b/l PNA sepsis: secondary to pneumococcal PNA with bacteremia lactate normalized septic physiology has resolved pneumococcal bacteremia secondary to community acquired pneumonia: severe pneumococcal pneumonia, currently on [address] yesterday 08/15- severe bullous emphysema with b/l infiltrates, worse on left cont ceftriaxone antibiotic day 04/03, though per ID, may require 4 weeks of therapy given bullous involvement bronch yesterday- LLL mucus plugging, BAL Cxs pending CODP: severe cont duonebs, schedule QID with prn Alb nebs change to oral prednisone will need Rx's at dc and likely home O2 weight loss / SPCM: prealbumin low ensure started dietary to see diarrhea: new last night, ?diarrhea assd vs c diff check c diff neuropathy: foot callouses noted on exam, pt with neuropathic pain symptoms start neurontin Tobacco abuse: encourage cessation, especially if needs home O2 proph: resume LMWH dispo: cont inpt. PT/OT. Subjective: Pt feels "crummy". Reports dry cough now, some SOB. No CP. No fevers. Complains of pain/burning and stocking glove sensation in feet. Causes difficulty with ambulation Objective: Vital Signs Temp Pulse Resp BP Pulse Ox 36.6 C 86 18 147/90 H 89 L 08/17/17 07:32 08/17/17 07:32 08/17/17 07:32 08/17/17 07:32 08/17/17 07:32 Microbiology 08/16/17 14:30 Gram Stain - Final Lung Left Lower Lobe - Bronchial Washings Laboratory Results 08/16/17 04:33 08/15/17 04:23 08/16/17 08/17/17 08/18/17 05:59 05:59 05:59 Intake Total 750 Balance 750 PT 15.1 SEC (12.0-15.0) H 08/13/17 04:18 INR 1.19 (0.83-1.16) H 08/13/17 04:18 - Physical Exam Constitutional: chronically ill appearing Eyes: PERRL Ears, Nose, Mouth, Throat: moist mucous membranes Cardiovascular: regular rate and rhythym Respiratory: no respiratory distress, reduced air movement Gastrointestinal: normoactive bowel sounds, soft, non-tender abdomen Skin: warm Musculoskeletal: full muscle strength, other (left foot with callouses) Neurologic: AAOx3 Psychiatric: interacting appropriately ICD10 Worksheet Patient Problems: Problems Problem Status Onset Pneumonia Acute
[2017-08-17] MEDS: NICOTINE 21 MG/24 HR PATCH TD SCH (08:52)
[2017-08-17] MEDS: GABAPENTIN 300 MG CAP PO SCH ×2 (08:52→19:26)
[2017-08-17] MEDS: cefTRIAXone 2 GM in D5W 50 ML IV SCH (08:53)
--- NOTE | 2017-08-17 14:32 | SOAPPROG ---
SOAP Progress Note Assessment/Plan: Assessment: * COPD * Diffuse Left pneumonia * Resp failure-improved Plan: Bronchoscopy Continue current abx Subjective: Feels weak but breathing somewhat better. His cough is reduced. Objective: Vital Signs Temp Pulse Resp BP Pulse Ox 36.7 C 87 16 130/82 H 90 L 08/17/17 11:19 08/17/17 11:19 08/17/17 11:19 08/17/17 11:19 08/17/17 11:19 Microbiology 08/16/17 14:30 Mycobacterial Smear (LITO) - Final Lung Left Lower Lobe - Bronchial Washings 08/16/17 14:30 Gram Stain - Final Lung Left Lower Lobe - Bronchial Washings Laboratory Results 08/16/17 04:33 08/15/17 04:23 08/16/17 08/17/17 08/18/17 05:59 05:59 05:59 Intake Total 750 Balance 750 PT 15.1 SEC (12.0-15.0) H 08/13/17 04:18 INR 1.19 (0.83-1.16) H 08/13/17 04:18 Physical Exam - Physical Exam General Appearance: alert, no apparent distress EENT: PERRL/EOMI, normal ENT inspection Neck: non-tender, full range of motion Respiratory: decreased breath sounds, No respiratory distress, No accessory muscle use, No wheezing Cardiac/Chest: normal peripheral pulses, regular rate, rhythm Peripheral Pulses: 2+: carotid (R), carotid (L), femoral (R), femoral (L), dorsalis-pedis (R), dorsalis-pedis (L) Abdomen: normal bowel sounds, non-tender, soft Male Genitalia: deferred Rectal: deferred Skin: normal color, warm/dry ICD10 Worksheet Patient Problems: Problems Problem Status Onset Pneumonia Acute
--- NOTE | 2017-08-17 15:52 | PCMIDPN ---
Assessment/Plan: Assessment/Plan: * Invasive pneumococcal disease due to severe left lower lobe pneumonia which may have necrotizing element with small abscess formation within bulla: Repeat blood cultures show clearing of bacteremia. Bronchoscopy without endobronchial obstructive findings. Continue ceftriaxone. Pneumococcal isolate is quinolone susceptible which will allow for completion of antibiotic therapy with moxifloxacin or levofloxacin given excellent oral bioavailability. Anticipate 4 weeks of therapy based on severity of consolidative changes and presence of air-fluid levels consistent with small abscesses. Delete 08/17/17 15:49 Subjective: Patient feels better with persistent right-sided pleuritic chest pain. 2 episodes of diarrhea last p.m. but none today. Objective: Vital Signs Temp Pulse Resp BP Pulse Ox 36.5 C 85 22 H 136/74 H 90 L 08/17/17 15:05 08/17/17 15:05 08/17/17 15:05 08/17/17 15:05 08/17/17 15:05 Microbiology 08/16/17 14:30 Mycobacterial Smear (LITO) - Final Lung Left Lower Lobe - Bronchial Washings 08/16/17 14:30 Gram Stain - Final Lung Left Lower Lobe - Bronchial Washings Laboratory Results 08/16/17 04:33 08/15/17 04:23 08/16/17 08/17/17 08/18/17 05:59 05:59 05:59 Intake Total 750 Balance 750 Ceftriaxone # 4 Blood cultures 08/14/2017 no growth BAL Gram stain negative with culture pending - Physical Exam General Appearance: alert, no apparent distress, thin EENT: No thrush Respiratory: crackles (Left base), No respiratory distress Cardiac/Chest: regular rate, rhythm Abdomen: non-tender, No distended ICD10 Worksheet Patient Problems: Problems Problem Status Onset Pneumonia Acute
[2017-08-17] MEDS: TEMAZEPAM 15 MG CAP PO PRN (23:04)
[2017-08-18] MEDS: IPRATROPIUM/ALBUTEROL 3 ML DEYVIAL IH SCH ×5 (06:01→20:00)
[2017-08-18] MEDS: oxyCODONE IR 5 MG TAB PO PRN ×2 (06:22→19:21)
--- NOTE | 2017-08-18 10:44 | WOCRNPDOC ---
WOCRN Advanced Assessment Note - Skin Integrity Problem, Advanced Assess Left Foot Dressing Type: Open to Air Exudate Amount: None Exudate Characteristic(s): None Corry Wound Tissue: Intact, Dry, Calloused Corry Wound Swelling: None Skin Integrity Problem Comment: Two, discrete raised callouses on plantar aspect of patient's L foot, one over the 1st metatarsal and the other over the 5th metatarsal. No fluctuance in either callous, though patient reports mild pain when sites are palpated and significant pain with walking. Periowund skin is dry, flaky, and intact. He says he wears boots, which are evidently putting too much pressure over those bony prominences. I will order Atrac-tain cream w/ urea and AHA to help exfoliate the dry skin on his feet. Going forward, recommend he see a bilingual middle school teacher in the outpatient setting to address these callouses and be evaluated for off-loading footwear. No need for wound care to follow ongoing. Right Medial First Toe Dressing Type: Open to Air Exudate Amount: None Exudate Characteristic(s): None Corry Wound Tissue: Intact, Dry, Calloused Corry Wound Swelling: None Skin Integrity Problem Comment: Intact callous over R medial great toe, with similar attributes as the calloused areas on the L foot. Will initiate same tx w / Atrac-tain.
[2017-08-18] MEDS: cefTRIAXone 2 GM in D5W 50 ML IV SCH ×2 (11:15→11:58)
[2017-08-18] MEDS: NICOTINE 21 MG/24 HR PATCH TD SCH (11:16)
[2017-08-18] MEDS: GABAPENTIN 300 MG CAP PO SCH ×2 (11:16→20:50)
[2017-08-18] MEDS: predniSONE 20 MG TAB PO SCH (11:16)
--- NOTE | 2017-08-18 11:30 | PDINTPN ---
Sprigger Progress Note Assessment/Plan: Assessment: * COPD * Diffuse Left pneumonia * Resp failure-worsening breathlessness and hypoxemia Plan: Continue current antibiotics Agree with transfer to step-down unit Aggressive pulmonary toilet Add Mucomyst Consider BiPAP Try Vapotherm Subjective: More breathless. Still with cough. Objective: Vital Signs Temp Pulse Resp BP Pulse Ox 36.4 C 86 28 H 124/77 H 88 L 08/18/17 07:38 08/18/17 09:49 08/18/17 09:49 08/18/17 07:38 08/18/17 09:49 Microbiology 08/16/17 14:30 Gram Stain - Final Lung Left Lower Lobe - Bronchial Washings Bronchial Washings Culture - Final Kati Dublinensis 08/16/17 14:30 Mycobacterial Smear (LITO) - Final Lung Left Lower Lobe - Bronchial Washings Laboratory Results 08/16/17 04:33 08/15/17 04:23 08/17/17 08/18/17 08/19/17 05:59 05:59 05:59 Intake Total 750 1210 Balance 750 1210 PT 15.1 SEC (12.0-15.0) H 08/13/17 04:18 INR 1.19 (0.83-1.16) H 08/13/17 04:18 Physical Exam - Physical Exam General Appearance: alert, moderate distress EENT: PERRL/EOMI Neck: non-tender, full range of motion Respiratory: crackles (Bibasilar increased on left), prolonged expiration, No wheezing Cardiac/Chest: normal peripheral pulses, regular rate, rhythm Peripheral Pulses: 2+: carotid (R), carotid (L), femoral (R), femoral (L), dorsalis-pedis (R), dorsalis-pedis (L) Abdomen: normal bowel sounds, non-tender, soft Male Genitalia: deferred Rectal: deferred Skin: normal color, warm/dry Neuro/Psych: no motor/sensory deficits, alert, normal mood/affect, oriented x 3 ICD10 Worksheet Patient Problems: Problems Problem Status Onset Pneumonia Acute
--- NOTE | 2017-08-18 11:37 | HOSPPROG ---
Hospitalist Progress Note Assessment/Plan: 61 yo M with severe bullous emphysema a/w multi-focal b/l PNA sepsis: secondary to pneumococcal PNA with bacteremia lactate normalized septic physiology has resolved acute hypoxemic respiratory failure due to severe pneumococcal pneumonia in setting of severe bullous emphysema: increased O2 requirement today, up to 15 LPM to keep sats 90%. CXR this am personally reviewed and interpreted (over- penetrated film), stable to increased left airspace disease. CT 08/15- severe bullous emphysema with b/l infiltrates, worse on left and debris filled bullae. Bronch 08/16- LLL mucus plugging, BAL Cxs pending transfer to ICU start vapotherm, may need bipap add mucomyst increase duonebs to q4h with q2h prn albuterol cont steroids cont ceftriaxone will need home Rxs for inhalers pneumococcal bacteremia: antibiotic day 05/03, per ID, will likely require 4 weeks of therapy given bullous involvement weight loss / SPCM: prealbumin low ensure started dietary to see diarrhea: new last night, ?diarrhea assd vs c diff check c diff neuropathy: foot callouses noted on exam, pt with neuropathic pain symptoms start neurontin Tobacco abuse: encourage cessation, especially if needs home O2 proph: resume LMWH dispo: cont inpt, transfer to ICU. A total of 30 minutes was spent at bedside providing critical care and discussing case with sub-specialist Subjective: Pt has increased WOB today. No fevers. Still coughing. No CP, but endorses SOB. Objective: Vital Signs Temp Pulse Resp BP Pulse Ox 36.4 C 86 28 H 124/77 H 88 L 08/18/17 07:38 08/18/17 09:49 08/18/17 09:49 08/18/17 07:38 08/18/17 09:49 Microbiology 08/16/17 14:30 Gram Stain - Final Lung Left Lower Lobe - Bronchial Washings Bronchial Washings Culture - Final Kati Dublinensis 08/16/17 14:30 Mycobacterial Smear (LITO) - Final Lung Left Lower Lobe - Bronchial Washings Laboratory Results 08/16/17 04:33 08/15/17 04:23 08/17/17 08/18/17 08/19/17 05:59 05:59 05:59 Intake Total 750 1210 Balance 750 1210 PT 15.1 SEC (12.0-15.0) H 08/13/17 04:18 INR 1.19 (0.83-1.16) H 08/13/17 04:18 - Physical Exam Constitutional: chronically ill appearing Eyes: PERRL Ears, Nose, Mouth, Throat: moist mucous membranes Cardiovascular: regular rate and rhythym Respiratory: reduced air movement, expiratory wheeze, inspiratory crackles Gastrointestinal: normoactive bowel sounds, soft, non-tender abdomen Skin: warm Musculoskeletal: full muscle strength Neurologic: AAOx3 Psychiatric: interacting appropriately ICD10 Worksheet Patient Problems: Problems Problem Status Onset Pneumonia Acute
[2017-08-18] MEDS: ACETYLCYSTEINE 10% 30 ML VIAL IH SCH ×2 (12:47→17:05)
--- NOTE | 2017-08-18 14:14 | PCMIDPN ---
Assessment/Plan: Assessment/Plan: * Invasive pneumococcal disease due to severe left lower lobe pneumonia which may have necrotizing element with small abscess formation within bulla: Repeat blood cultures show clearing of bacteremia. Continue ceftriaxone. Plan to complete therapy with oral moxifloxacin or levofloxacin based on susceptibility profile on excellent oral bioavailability. Continue supportive care for respiratory failure. Kati found in BAL does not require therapy as this likely represents colonization. 08/18/17 14:11 Subjective: Patient transferred ICU today for worsening respiratory distress. Feels improved since transfer. Persistent sputum production which is yellow. Objective: Vital Signs Temp Pulse Resp BP Pulse Ox 36.7 C 91 24 H 132/82 H 88 L 08/18/17 12:00 08/18/17 12:00 08/18/17 12:00 08/18/17 12:00 08/18/17 12:00 Microbiology 08/16/17 14:30 Gram Stain - Final Lung Left Lower Lobe - Bronchial Washings Bronchial Washings Culture - Final Kati Dublinensis 08/16/17 14:30 Mycobacterial Smear (LITO) - Final Lung Left Lower Lobe - Bronchial Washings Laboratory Results 08/16/17 04:33 08/15/17 04:23 08/17/17 08/18/17 08/19/17 05:59 05:59 05:59 Intake Total 750 1210 Balance 750 1210 Ceftriaxone # 5 Blood cultures 08/14/2017 no growth BAL with growth of Kati dublensis - Physical Exam General Appearance: alert, no apparent distress, thin EENT: No scleral icterus, No conjunctival petechiae Respiratory: bronchial breath sounds (Left lower lung field), other (Mild increase in respiratory effort) Cardiac/Chest: regular rate, rhythm ICD10 Worksheet Patient Problems: Problems Problem Status Onset Pneumonia Acute
[2017-08-19] MEDS: IPRATROPIUM/ALBUTEROL 3 ML DEYVIAL IH SCH ×6 (00:02→21:07)
[2017-08-19] MEDS: ACETYLCYSTEINE 10% 30 ML VIAL IH SCH ×4 (00:03→17:12)
[2017-08-19] MEDS: oxyCODONE IR 5 MG TAB PO PRN ×5 (00:32→22:35)
[2017-08-19 05:22] LABS: ABSOLUTE IMMATURE GRANULOCYTES 0.13 10^3/uL (0.00-0.10); ADD DIFF? NO; ADD MORPH? NO; ADD SCAN? NO; ATYPICAL LYMPHOCYTE FLAG 0 (0-99); FRAGMENT RBC FLAG 0 (0-99); HEMATOCRIT 30.5 % (40.0-51.0); HEMOGLOBIN 10.7 g/dL (13.7-17.5); LEFT SHIFT FLG 10 (0-99); LIPEMIA HEMOLYSIS FLAG 90 (0-99); MEAN CELL HEMOGLOBIN 32.1 pg (27.9-34.1); MEAN CELL HEMOGLOBIN CONCENTR. 35.1 g/dL (32.4-36.7); MEAN CELL VOLUME 91.6 fL (81.5-99.8); MEAN PLATELET VOLUME 8.5 fL (8.7-11.7); PLATELET CLUMPS FLAG 0 (0-99); PLATELET COUNT 517 10^3/uL (150-400); RED BLOOD CELL COUNT 3.33 10^6/uL (4.40-6.38); RED CELL DISTRIBUTION WIDTH 14.3 % (11.5-15.2)
[2017-08-19] MEDS: NICOTINE 21 MG/24 HR PATCH TD SCH (08:08)
[2017-08-19] MEDS: GABAPENTIN 300 MG CAP PO SCH ×2 (08:10→20:50)
[2017-08-19] MEDS: predniSONE 20 MG TAB PO SCH (08:10)
--- NOTE | 2017-08-19 08:26 | HOSPPROG ---
Hospitalist Progress Note Assessment/Plan: 61 yo M with severe bullous emphysema a/w multi-focal PNA, has developed high O2 needs, currently on 30 LPM vapotherm sepsis: secondary to pneumococcal PNA with bacteremia lactate normalized septic physiology has resolved acute hypoxemic respiratory failure due to pneumococcal pneumonia in setting of severe bullous emphysema: now on high flow O2 with vapotherm, but appears non- toxic and relatively comfortable. CT 08/15-severe bullous emphysema with b/l infiltrates, worse on left with fluid filled bullae, possibly microabscesses. These are not amenable to drainage due to risk of rupture. Bronch 08/16- LLL mucus plugging, BAL Cxs NGTD. repeat CXR this am with persistent opacification of left lung cont vapotherm if respiratory status declines, would try bipap mucomyst added yesterday cont nebs, steroids, atbx will need home Rxs for inhalers pneumococcal bacteremia: antibiotic day 06/17. Per ID, will likely require 4 weeks of therapy given bullous involvement weight loss / SPCM: prealbumin low ensure dietary following diarrhea: c diff neg, likely atbx associated prn loperamide neuropathy: foot callouses noted on exam, pt with neuropathic pain symptoms started neurontin wound consult needs outpt podiatry f/u Tobacco abuse: encourage cessation, especially since anticipating he'll need home O2 proph: resume LMWH dispo: cont inpt, ICU. Subjective: Pt up in bed, appears comfortable despite high O2 needs. He does not c/o SOB or increased WOB. Still having productive cough. No fevers. Reports diarrhea 1-2 times per day. No abdominal pain. Eating fairly well. Objective: Vital Signs Temp Pulse Resp BP Pulse Ox 36.7 C 93 19 132/80 H 80 L 08/19/17 07:38 08/19/17 07:38 08/19/17 07:38 08/19/17 07:38 08/19/17 07:38 Microbiology 08/16/17 14:30 Gram Stain - Final Lung Left Lower Lobe - Bronchial Washings Bronchial Washings Culture - Final Kati Dublinensis 08/16/17 14:30 Mycobacterial Smear (LITO) - Final Lung Left Lower Lobe - Bronchial Washings Laboratory Results 08/19/17 05:15 08/15/17 04:23 08/18/17 08/19/17 08/20/17 05:59 05:59 05:59 Intake Total 1210 725 Balance 1210 725 PT 15.1 SEC (12.0-15.0) H 08/13/17 04:18 INR 1.19 (0.83-1.16) H 08/13/17 04:18 - Physical Exam Constitutional: chronically ill appearing, cachectic Eyes: PERRL Ears, Nose, Mouth, Throat: moist mucous membranes Cardiovascular: regular rate and rhythym Respiratory: no respiratory distress, other (a few scattered crackles L>R, improved air exchange) Gastrointestinal: normoactive bowel sounds, soft, non-tender abdomen Skin: warm Musculoskeletal: generalized weakness Neurologic: AAOx3 Psychiatric: interacting appropriately ICD10 Worksheet Patient Problems: Problems Problem Status Onset Pneumonia Acute
[2017-08-19] MEDS: cefTRIAXone 2 GM in D5W 50 ML IV SCH (08:48)
--- NOTE | 2017-08-19 14:26 | PDINTPN ---
[facility] Progress Note Assessment/Plan: Assessment/plan: 61 M with COPD admitted 08/12 with CAP and severe infiltrates on CXR/CT. Blood cultures grew morales-sensitive Strep and he has been treated with CTX. He underwent unremarkable bronch on 08/16, but O2 requirements increased around for unclear reasons and his LLL infiltrate was more consolidated. * CAP- severe, yet marginally stable. Continue to use flutter valve, mucomyst, duoneb q4 hrs, and OOB as tolerated. Add IS today as well. Not sure vest will provide any additional benefit, and he reported trying it twice and preferred not to use it. * COPD- as above. Remains on prednisone at 60/day for now. * Bacteremia- likely from PNA and repeat Bcx negative. * Subjective: Feels comfortable despite high O2 requirement. Using flutter valve, nebs. Only dry cough at the moment. Objective: Vital Signs Temp Pulse Resp BP Pulse Ox 36.7 C 91 20 99/57 L 92 08/19/17 11:31 08/19/17 13:30 08/19/17 13:30 08/19/17 11:31 08/19/17 13:30 Microbiology 08/14/17 07:30 Blood Culture - Final Blood 08/14/17 07:35 Blood Culture - Final Blood 08/16/17 14:30 Gram Stain - Final Lung Left Lower Lobe - Bronchial Washings Bronchial Washings Culture - Final Kati Dublinensis 08/16/17 14:30 Mycobacterial Smear (LITO) - Final Lung Left Lower Lobe - Bronchial Washings Laboratory Results 08/19/17 05:15 08/15/17 04:23 08/18/17 08/19/17 08/20/17 05:59 05:59 05:59 Intake Total 1210 725 Balance 1210 725 PT 15.1 SEC (12.0-15.0) H 08/13/17 04:18 INR 1.19 (0.83-1.16) H 08/13/17 04:18 Physical Exam - Physical Exam General Appearance: alert, no apparent distress, thin EENT: PERRL/EOMI Neck: supple Respiratory: rhonchi, No respiratory distress Cardiac/Chest: regular rate, rhythm, No edema Abdomen: non-tender, soft, No distended Skin: normal color, warm/dry Lymphatic: no adenopathy Extremities: non-tender, No pedal edema Neuro/Psych: alert, normal mood/affect, oriented x 3 ICD10 Worksheet Patient Problems: Problems Problem Status Onset Pneumonia Acute
--- NOTE | 2017-08-19 15:04 | ASMTCMCOM ---
CM Note CM Note Notes: Patient continues to be on very high levels of O2 and ABX. Therapies have evaluated and feel that patient won't have therapy needs on discharge. Date Signed: 08/19/2017 03:03 PM Electronically Signed By:Corrie Dolan LCSW
--- NOTE | 2017-08-19 18:16 | PCMIDPN ---
Assessment/Plan: Assessment: Left-sided pneumonia-with bacteremia secondary to Streptococcus pneumoniae. Patient is clearly clinically improved at this point on IV ceftriaxone. Still needs significant O2 support. Plan: 1. Continue IV ceftriaxone at current dose. 2. Follow clinical course. 3. Follow up repeat blood cultures. 08/19/17 22:44 Subjective: Patient is resting in his hospital bed watching TV. No complaints. Says that he is starting to feel better but that he gets out of breath trying to move around the room. Objective: Ceftriaxone # 6 Vital Signs Temp Pulse Resp BP Pulse Ox 36.7 C 90 20 127/78 H 95 08/19/17 16:34 08/19/17 17:12 08/19/17 17:12 08/19/17 16:34 08/19/17 17:12 Microbiology 08/14/17 07:30 Blood Culture - Final Blood 08/14/17 07:35 Blood Culture - Final Blood Laboratory Results 08/19/17 05:15 08/15/17 04:23 08/18/17 08/19/17 08/20/17 05:59 05:59 05:59 Intake Total 9366 028 8711 Balance 0409 547 8640 - Physical Exam General Appearance: WD/WN, alert, thin, non-toxic Respiratory: crackles, No lungs clear, No normal breath sounds Cardiac/Chest: regular rate, rhythm, No tachycardia Extremities: non-tender, normal inspection Skin: normal color, warm/dry, No rash Neuro/Psych: alert, normal mood/affect, oriented x 3 ICD10 Worksheet Patient Problems: Problems Problem Status Onset Pneumonia Acute
[2017-08-20] MEDS: ACETYLCYSTEINE 10% 30 ML VIAL IH SCH ×5 (00:44→23:07)
[2017-08-20] MEDS: IPRATROPIUM/ALBUTEROL 3 ML DEYVIAL IH SCH ×7 (00:44→23:06)
[2017-08-20] MEDS: oxyCODONE IR 5 MG TAB PO PRN ×4 (06:04→19:44)
[2017-08-20 06:09] LABS: % IMMATURE GRANULYOCYTES 1.1 % (0.0-1.1); ABSOLUTE IMMATURE GRANULOCYTES 0.14 10^3/uL (0.00-0.10); ADD DIFF? NO; ADD MORPH? NO; ADD SCAN? NO; ATYPICAL LYMPHOCYTE FLAG 10 (0-99); FRAGMENT RBC FLAG 0 (0-99); HEMOGLOBIN 10.6 g/dL (13.7-17.5); LEFT SHIFT FLG 10 (0-99); LIPEMIA HEMOLYSIS FLAG 90 (0-99); MEAN CELL HEMOGLOBIN 31.4 pg (27.9-34.1); MEAN CELL HEMOGLOBIN CONCENTR. 34.2 g/dL (32.4-36.7); MEAN CELL VOLUME 91.7 fL (81.5-99.8); MEAN PLATELET VOLUME 8.4 fL (8.7-11.7); PLATELET CLUMPS FLAG 10 (0-99); PLATELET COUNT 552 10^3/uL (150-400); RED BLOOD CELL COUNT 3.38 10^6/uL (4.40-6.38); RED CELL DISTRIBUTION WIDTH 14.2 % (11.5-15.2)
[2017-08-20 06:50] LABS: ANION GAP 7 mEq/L (8-16); CALCIUM 7.9 mg/dL (8.5-10.4); CARBON DIOXIDE 32 mEq/l (22-31); CHLORIDE 99 mEq/L (97-110); CREATININE 0.6 mg/dL (0.7-1.3); GLOMERULAR FILTRATION RATE > 60; GLUCOSE 75 mg/dL (70-100); POTASSIUM 4.5 mEq/L (3.5-5.2); SODIUM 138 mEq/L (134-144)
[2017-08-20] MEDS: cefTRIAXone 2 GM in D5W 50 ML IV SCH (08:59)
[2017-08-20] MEDS: NICOTINE 21 MG/24 HR PATCH TD SCH (08:59)
[2017-08-20] MEDS: GABAPENTIN 300 MG CAP PO SCH ×2 (08:59→19:44)
[2017-08-20] MEDS: predniSONE 20 MG TAB PO SCH (08:59)
--- NOTE | 2017-08-20 09:27 | HOSPPROG ---
Hospitalist Progress Note Assessment/Plan: 61 yo M w severe L sided pneumonia sepsis: presnt on admit lactate normalized septic physiology has resolved pneumonia: severe pneumococcal pneumonia ceftriaxone antibiotic day 07/18 CT neg for hilar mass has been bronched cough now productive ?TB: ruled out HIV neg weight loss: prealbumin low ensure started dietary to see 16 lb weight loss likely meet the definition of SPCM CODP: severe start combivent rapid wean of steroids neuropathy: neurontin proph: LMWH dispo: inpt Subjective: case discussed w dr orellana Objective: Vital Signs Temp Pulse Resp BP Pulse Ox 36.7 C 84 19 129/78 H 95 08/20/17 07:37 08/20/17 07:37 08/20/17 07:37 08/20/17 07:37 08/20/17 07:37 Microbiology 08/14/17 07:30 Blood Culture - Final Blood 08/14/17 07:35 Blood Culture - Final Blood Laboratory Results 08/20/17 06:00 08/20/17 06:00 08/19/17 08/20/17 08/21/17 05:59 05:59 05:59 Intake Total 725 1500 Balance 725 1500 PT 15.1 SEC (12.0-15.0) H 08/13/17 04:18 INR 1.19 (0.83-1.16) H 08/13/17 04:18 - Physical Exam Constitutional: no apparent distress, appears nourished Eyes: PERRL, anicteric sclera Ears, Nose, Mouth, Throat: moist mucous membranes, hearing normal Cardiovascular: no murmur, rub, or gallop, tachycardia Respiratory: other (R lung clear. L lung w crackles and decreased breath sounds. no wheeze) Gastrointestinal: normoactive bowel sounds, soft, non-tender abdomen Genitourinary: no bladder fullness, No cr in urethra Skin: warm, normal color Musculoskeletal: full muscle strength, no muscle tenderness Neurologic: AAOx3 ICD10 Worksheet Patient Problems: Problems Problem Status Onset Pneumonia Acute
--- NOTE | 2017-08-20 11:32 | PCMIDPN ---
Assessment/Plan: Assessment/Plan: 1. Pneumococcal bacteremia with extensive left lung pneumonia: - CXR and CT chest images reviewed - Currently on ceftraixone - f/u blood cx ngtd -records reviewed in [facility]. he has not been to any of the institutions that are a part of that. - HIV negative. - plan for at least 4 weeks treatment Micro: 08/12/17: blood cx: 01/22 bottles with pneumococcus 08/12/17: sputum sent to [facility] ceftriaxone 2g daily - 08/13/17 s/p zosyn 3.375gm q6- 08/12/17-08/13/17 Subjective: afebril.e sittin in chair. feeling better. still coughing up phlegm. denies abd pain. having loose stools appetite ok. Objective: Vital Signs Temp Pulse Resp BP Pulse Ox 36.7 C 105 H 16 129/78 H 93 08/20/17 07:37 08/20/17 09:20 08/20/17 09:20 08/20/17 07:37 08/20/17 09:20 Microbiology 08/16/17 14:30 Mycobacterial Smear (LITO) - Final Lung Left Lower Lobe - Bronchial Washings 08/14/17 Unknown Mycobacterial Smear (LITO) - Final Sputum, Expectorated 08/14/17 05:50 Mycobacterial Smear (LITO) - Final Sputum, Expectorated 08/14/17 07:30 Blood Culture - Final Blood 08/14/17 07:35 Blood Culture - Final Blood Laboratory Results 08/20/17 06:00 08/20/17 06:00 08/19/17 08/20/17 08/21/17 05:59 05:59 05:59 Intake Total 725 1500 400 Balance 725 1500 400 - Physical Exam General Appearance: alert, no apparent distress Respiratory: coarse breath sounds Cardiac/Chest: regular rate, rhythm Extremities: No swelling Abdomen: normal bowel sounds, non-tender, soft, No distended Skin: No erythema ICD10 Worksheet Patient Problems: Problems Problem Status Onset Pneumonia Acute
--- NOTE | 2017-08-20 16:30 | ASMTCMCOM ---
CM Note CM Note Notes: Andria Callahan [facility], patient's employer called to say that she was concerned about patient's living environment. She reports that patient lives w/a roommate who smokes and that he doesn't smoke outside. She wondered if he might qualify to go to a SNF. Patient "Self Pay" and was screened for Medicaid, may be "pending" at this time. If patient needs IV ABX and O2 he might qualify. If Medications are PO and O2 needs are under 6L, he can probably return home. Patient is also a smoker. He is cooperative and willing to go where he needs to go. Date Signed: 08/20/2017 04:29 PM Electronically Signed By:Corrie Dolan LCSW
--- NOTE | 2017-08-20 16:31 | PDINTPN ---
[facility] Progress Note Assessment/Plan: Assessment/plan: 61 M with COPD admitted 08/12 with CAP and severe infiltrates on CXR/CT. Blood cultures grew morales-sensitive Strep and he has been treated with CTX. He underwent unremarkable bronch on 08/16, but O2 requirements increased around for unclear reasons and his LLL infiltrate was more consolidated. * CAP- severe, yet marginally stable. Continue to use flutter valve, mucomyst, duoneb q4 hrs, and OOB as tolerated. Add IS today as well. Not sure vest will provide any additional benefit, and he reported trying it twice and preferred not to use it. Remains on CTX * COPD- as above. Remains on prednisone at 60/day for now. Remains on vapotherm at 30 lpm/90%, but tolerated reduction to 70% today. Titrate as tolerated. * Bacteremia- likely from PNA and repeat Bcx negative. 4 weeks abx per ID noted * 08/20/17 16:29 Subjective: No complaints. Still dyspnea on little exertion Objective: Vital Signs Temp Pulse Resp BP Pulse Ox 36.9 C 97 20 134/88 H 94 08/20/17 16:00 08/20/17 16:00 08/20/17 16:00 08/20/17 16:00 08/20/17 16:00 Microbiology 08/16/17 14:30 Mycobacterial Smear (LITO) - Final Lung Left Lower Lobe - Bronchial Washings 08/14/17 Unknown Mycobacterial Smear (LITO) - Final Sputum, Expectorated 08/14/17 05:50 Mycobacterial Smear (LITO) - Final Sputum, Expectorated Laboratory Results 08/20/17 06:00 08/20/17 06:00 08/19/17 08/20/17 08/21/17 05:59 05:59 05:59 Intake Total 725 1500 1200 Balance 725 1500 1200 PT 15.1 SEC (12.0-15.0) H 08/13/17 04:18 INR 1.19 (0.83-1.16) H 08/13/17 04:18 Physical Exam - Physical Exam General Appearance: alert, no apparent distress EENT: PERRL/EOMI Neck: supple Respiratory: rhonchi, No respiratory distress, No wheezing Cardiac/Chest: regular rate, rhythm, No edema Abdomen: non-tender, soft, No distended Skin: normal color, warm/dry Lymphatic: no adenopathy Extremities: No pedal edema Neuro/Psych: alert, normal mood/affect, oriented x 3 ICD10 Worksheet Patient Problems: Problems Problem Status Onset Pneumonia Acute
[2017-08-21] MEDS: IPRATROPIUM/ALBUTEROL 3 ML DEYVIAL IH SCH ×6 (04:15→23:47)
[2017-08-21] MEDS: oxyCODONE IR 5 MG TAB PO PRN ×4 (04:59→18:27)
[2017-08-21] MEDS: ACETYLCYSTEINE 10% 30 ML VIAL IH SCH ×4 (05:44→23:48)
[2017-08-21] MEDS: cefTRIAXone 2 GM in D5W 50 ML IV SCH (09:02)
[2017-08-21] MEDS: predniSONE 20 MG TAB PO SCH (09:02)
[2017-08-21] MEDS: NICOTINE 21 MG/24 HR PATCH TD SCH (09:02)
[2017-08-21] MEDS: GABAPENTIN 300 MG CAP PO SCH ×2 (09:02→20:19)
--- NOTE | 2017-08-21 11:31 | HOSPPROG ---
Hospitalist Progress Note Assessment/Plan: # sepsis, POA - resolved # acute on chronic resp failure, slowly improving # pneumococcal pna, severe - rocephin D#08/17 # pneumococcal bacteremia - rocephin # weight loss, likely severe malnutrition - ensure # COPD/chronic resp failure - tobacco cessation discussed # neuropathy - gabapentin Subjective: still occasionally SOB; loose BMs per RN Objective: Vital Signs Temp Pulse Resp BP Pulse Ox 36.4 C 91 22 H 133/83 H 94 08/21/17 08:00 08/21/17 10:25 08/21/17 10:25 08/21/17 08:00 08/21/17 10:25 Microbiology 08/16/17 14:30 Mycobacterial Smear (LITO) - Final Lung Left Lower Lobe - Bronchial Washings 08/14/17 Unknown Mycobacterial Smear (LITO) - Final Sputum, Expectorated 08/14/17 05:50 Mycobacterial Smear (LITO) - Final Sputum, Expectorated Laboratory Results 08/20/17 06:00 08/20/17 06:00 08/20/17 08/21/17 08/22/17 05:59 05:59 05:59 Intake Total 1500 2100 Balance 1500 2100 PT 15.1 SEC (12.0-15.0) H 08/13/17 04:18 INR 1.19 (0.83-1.16) H 08/13/17 04:[address] reviewed - Physical Exam Constitutional: no apparent distress, appears nourished Cardiovascular: regular rate and rhythym, no murmur, rub, or gallop Respiratory: no respiratory distress, other (marked R sided crackles, rhonchi; no wheezes) Gastrointestinal: normoactive bowel sounds, soft, non-tender abdomen, no palpable masses ICD10 Worksheet Patient Problems: Problems Problem Status Onset Pneumonia Acute
[2017-08-21] MEDS: ENOXAPARIN 40 MG/0.4 ML SYR SC SCH (11:32)
[2017-08-21 12:04] LABS: BASE EXCESS 7.7 mEq/L (-2.5-2.5); BICARBONATE 32 mEq/L (22-26); MEASURED OXYGEN SATURATION 90 % (92-95); PCO2 44 mmHg (34-38); PO2 58 mmHg (65-75); TCO2 33 mEq/L (23-27)
--- NOTE | 2017-08-21 13:47 | PDINTPN ---
[facility] Progress Note Assessment/Plan: Assessment/plan: 61 M with COPD admitted 08/12 with CAP and severe infiltrates on CXR/CT. Blood cultures grew morales-sensitive Strep and he has been treated with CTX. He underwent unremarkable bronch on 08/16, but O2 requirements increased around for unclear reasons and his LLL infiltrate was more consolidated. * CAP- severe, yet marginally stable. Continue to use flutter valve, mucomyst, duoneb q4 hrs, IS and OOB as tolerated. Not sure vest will provide any additional benefit, and he reported trying it twice and preferred not to use it. Remains on CTX * COPD with hypoxemia- as above. Resonable to target sat 92-94%, but ABG shows primary metabolic alkalosis and normal CO2 (44; normal range 35-45). If O2 requirement remains stable or continues to improve, consider transfer to floor * Bacteremia- likely from PNA and repeat Bcx negative. 4 weeks abx per ID noted * Subjective: Continues to improve Objective: Vital Signs Temp Pulse Resp BP Pulse Ox 37.1 C 91 16 106/61 93 08/21/17 12:00 08/21/17 12:00 08/21/17 12:00 08/21/17 12:00 08/21/17 12:00 Microbiology 08/16/17 14:30 Mycobacterial Smear (LITO) - Final Lung Left Lower Lobe - Bronchial Washings 08/14/17 Unknown Mycobacterial Smear (LITO) - Final Sputum, Expectorated 08/14/17 05:50 Mycobacterial Smear (LITO) - Final Sputum, Expectorated Laboratory Results 08/20/17 06:00 08/20/17 06:00 08/20/17 08/21/17 08/22/17 05:59 05:59 05:59 Intake Total 1500 2100 Balance 1500 2100 PT 15.1 SEC (12.0-15.0) H 08/13/17 04:18 INR 1.19 (0.83-1.16) H 08/13/17 04:18 Physical Exam - Physical Exam General Appearance: alert, no apparent distress EENT: PERRL/EOMI Neck: supple Respiratory: decreased breath sounds, rales, No wheezing Cardiac/Chest: regular rate, rhythm, No edema Abdomen: non-tender, soft, No distended Skin: normal color, warm/dry Lymphatic: no adenopathy Extremities: No pedal edema Neuro/Psych: alert, normal mood/affect, oriented x 3 ICD10 Worksheet Patient Problems: Problems Problem Status Onset Pneumonia Acute
--- NOTE | 2017-08-21 16:09 | ASMTCMCOM ---
CM Note CM Note Notes: I spoke with patient about discharge planning. He is still not able to articulate what he wants upon d/c but he does understand that he will need 4 weeks total of IV antibiotics and O2 therapy. I explained that he could have these services at home or at a SNF, and patient says that his roommate situation makes home therapy unappealing. Further complicating things is his lack of insurance. A Medicaid application was submitted 08/13, and he will also be screened for termite control servicer Medicaid which he would need for a SNF. I submitted the ULTC 100 form today so that an ticket sales agent from [facility] can screen him for SNF eligibility. Patient agreed to revisit this conversation tomorrow. Date Signed: 08/21/2017 04:08 PM Electronically Signed By:Erma Chaudhry RN
--- NOTE | 2017-08-21 20:28 | PCMIDPN ---
Assessment/Plan: Assessment: Left-sided pneumonia-with bacteremia secondary to Streptococcus pneumoniae. Patient is clearly clinically improved at this point on IV ceftriaxone. Still needs significant O2 support but will wean once ABG obtained. Plan: 1. Continue IV ceftriaxone. 2. Follow clinical course. 3. Follow up repeat blood cultures. 08/19/17 22:44 08/21/17 20:25 Subjective: Patient feels that he is getting better. Less short of breath. No cough. No fever. Objective: ceftriaxone #8 Vital Signs Temp Pulse Resp BP Pulse Ox 36.8 C 103 H 18 115/69 99 08/21/17 19:41 08/21/17 19:41 08/21/17 19:41 08/21/17 19:41 08/21/17 19:41 Laboratory Results 08/20/17 06:00 08/20/17 06:00 08/20/17 08/21/17 08/22/17 05:59 05:59 05:59 Intake Total 1500 2100 1160 Balance 1500 2100 1160 - Physical Exam General Appearance: WD/WN, alert, no apparent distress, thin, non-toxic Respiratory: lungs clear, normal breath sounds, No respiratory distress Cardiac/Chest: regular rate, rhythm, No tachycardia Skin: normal color, warm/dry, No rash Neuro/Psych: alert, normal mood/affect, oriented x 3 ICD10 Worksheet Patient Problems: Problems Problem Status Onset Pneumonia Acute
[2017-08-22] MEDS: ACETYLCYSTEINE 10% 30 ML VIAL IH SCH ×4 (05:14→23:46)
[2017-08-22] MEDS: IPRATROPIUM/ALBUTEROL 3 ML DEYVIAL IH SCH ×7 (05:14→23:46)
[2017-08-22 06:05] LABS: % IMMATURE GRANULYOCYTES 1.7 % (0.0-1.1); ABSOLUTE IMMATURE GRANULOCYTES 0.21 10^3/uL (0.00-0.10); ADD DIFF? NO; ADD MORPH? NO; ADD SCAN? NO; ATYPICAL LYMPHOCYTE FLAG 20 (0-99); FRAGMENT RBC FLAG 0 (0-99); HEMATOCRIT 32.5 % (40.0-51.0); HEMOGLOBIN 10.7 g/dL (13.7-17.5); LEFT SHIFT FLG 10 (0-99); LIPEMIA HEMOLYSIS FLAG 80 (0-99); MEAN CELL HEMOGLOBIN 31.1 pg (27.9-34.1); MEAN CELL HEMOGLOBIN CONCENTR. 32.9 g/dL (32.4-36.7); MEAN CELL VOLUME 94.5 fL (81.5-99.8); MEAN PLATELET VOLUME 8.3 fL (8.7-11.7); PLATELET CLUMPS FLAG 10 (0-99); PLATELET COUNT 629 10^3/uL (150-400); RED BLOOD CELL COUNT 3.44 10^6/uL (4.40-6.38); RED CELL DISTRIBUTION WIDTH 14.5 % (11.5-15.2)
[2017-08-22 06:14] LABS: POTASSIUM 4.8 mEq/L (3.5-5.2)
[2017-08-22 06:15] LABS: ALANINE AMINOTRANSFERASE 49 IU/L (21-72); ALBUMIN 2.1 g/dL (3.5-5.0); ALKALINE PHOSPHATASE 108 IU/L (38-126); ANION GAP 6 mEq/L (8-16); ASPARTATE AMINOTRANSFERASE 30 IU/L (17-59); BILIRUBIN,TOTAL 0.1 mg/dL (0.1-1.4); CALCIUM 8.4 mg/dL (8.5-10.4); CARBON DIOXIDE 38 mEq/l (22-31); CHLORIDE 96 mEq/L (97-110); CREATININE 0.7 mg/dL (0.7-1.3); GLOMERULAR FILTRATION RATE > 60; GLUCOSE 78 mg/dL (70-100); SODIUM 140 mEq/L (134-144); TOTAL PROTEIN 5.2 g/dL (6.3-8.2)
[2017-08-22] MEDS: cefTRIAXone 2 GM in D5W 50 ML IV SCH (09:37)
[2017-08-22] MEDS: NICOTINE 21 MG/24 HR PATCH TD SCH (09:37)
[2017-08-22] MEDS: GABAPENTIN 300 MG CAP PO SCH ×2 (09:38→21:59)
[2017-08-22] MEDS: predniSONE 20 MG TAB PO SCH (09:38)
[2017-08-22] MEDS: ENOXAPARIN 40 MG/0.4 ML SYR SC SCH (09:38)
--- NOTE | 2017-08-22 09:44 | PCMIDPN ---
Assessment/Plan: Assessment/Plan: * Invasive pneumococcal disease due to severe left lower lobe pneumonia which may have necrotizing element with small abscess formation within bulla: Bacteremia has cleared. Continue ceftriaxone with anticipated 4 week course of antibiotic therapy. This could be completed with oral fluoroquinolone if stabilizes. Continue supportive respiratory care. 08/22/17 09:42 Subjective: Patient with less cough although still with some sputum production. Some left- sided pleuritic chest pain present. Objective: Vital Signs Temp Pulse Resp BP Pulse Ox 37 C 111 H 20 121/81 H 91 L 08/22/17 07:55 08/22/17 08:46 08/22/17 08:46 08/22/17 07:55 08/22/17 08:46 Laboratory Results 08/22/17 05:57 08/22/17 05:57 08/21/17 08/22/17 08/23/17 05:59 05:59 05:59 Intake Total 2100 1660 Balance 2100 1660 Ceftriaxone # 9 Laboratory Tests 08/22/17 05:57 Total Bilirubin 0.1 AST 30 ALT 49 Alkaline Phosphatase 108 Albumin 2.1 L - Physical Exam General Appearance: alert, no apparent distress EENT: No scleral icterus, No thrush Respiratory: bronchial breath sounds (Left midlung field and lower lung field) Cardiac/Chest: tachycardia Abdomen: non-tender, No distended ICD10 Worksheet Patient Problems: Problems Problem Status Onset Pneumonia Acute
[2017-08-22] MEDS: oxyCODONE IR 5 MG TAB PO PRN ×2 (09:47→18:03)
--- NOTE | 2017-08-22 10:09 | HOSPPROG ---
Hospitalist Progress Note Assessment/Plan: # sepsis, POA - resolved # acute on chronic resp failure, slowly improving # pneumococcal pna, severe - rocephin D#09/17 - cont pred 20, will taper # pneumococcal bacteremia - rocephin # reactive thrombocytosis # weight loss, likely severe malnutrition - ensure # COPD/chronic resp failure - tobacco cessation discussed # neuropathy - gabapentin # dispo - med surg Subjective: ambulated; still feels SOB Objective: Vital Signs Temp Pulse Resp BP Pulse Ox 37 C 111 H 20 121/81 H 91 L 08/22/17 07:55 08/22/17 08:46 08/22/17 08:46 08/22/17 07:55 08/22/17 08:46 Laboratory Results 08/22/17 05:57 08/22/17 05:57 08/21/17 08/22/17 08/23/17 05:59 05:59 05:59 Intake Total 2100 1660 Balance 2100 1660 PT 15.1 SEC (12.0-15.0) H 08/13/17 04:18 INR 1.19 (0.83-1.16) H 08/13/17 04:18 tele reviewed discussed with Dr Sanders on ICU rounds - Physical Exam Constitutional: no apparent distress, appears nourished Cardiovascular: regular rate and rhythym, no murmur, rub, or gallop, systolic murmur Respiratory: clear to auscultation, bronchial breath sounds (L sided), respiratory distress (mild) Gastrointestinal: normoactive bowel sounds, soft, non-tender abdomen, no palpable masses ICD10 Worksheet Patient Problems: Problems Problem Status Onset Pneumonia Acute
--- NOTE | 2017-08-22 12:58 | PDINTPN ---
[place] Progress Note Assessment/Plan: Assessment/plan: 61 M with COPD admitted 08/12 with CAP and severe infiltrates on CXR/CT. Blood cultures grew morales-sensitive Strep and he has been treated with CTX. He underwent unremarkable bronch on 08/16, but O2 requirements increased around for unclear reasons and his LLL infiltrate was more consolidated. * CAP- severe, yet improving. Continue to use flutter valve, mucomyst, duoneb q4 hrs, IS and OOB as tolerated. Not sure vest will provide any additional benefit, and he reported trying it twice and preferred not to use it. Remains on CTX * COPD with hypoxemia- as above. Reasonable to target sat 92-94%, but ABG shows primary metabolic alkalosis and normal CO2 (44; normal range 35-45) possibly as a SE of prednisone. O2 requirements continue to improve. Agree with floor. * Bacteremia- likely from PNA and repeat Bcx negative. 4 weeks abx per ID noted * 08/22/17 12:56 Subjective: feels well without complaints. Minimal cough Objective: Vital Signs Temp Pulse Resp BP Pulse Ox 36.9 C 97 18 94/51 L 92 08/22/17 11:49 08/22/17 11:49 08/22/17 11:49 08/22/17 11:49 08/22/17 11:49 Laboratory Results 08/22/17 05:57 08/22/17 05:57 08/21/17 08/22/17 08/23/17 05:59 05:59 05:59 Intake Total 2100 1660 Balance 2100 1660 PT 15.1 SEC (12.0-15.0) H 08/13/17 04:18 INR 1.19 (0.83-1.16) H 08/13/17 04:18 Physical Exam - Physical Exam General Appearance: alert, no apparent distress EENT: PERRL/EOMI Neck: supple Respiratory: decreased breath sounds (L>R, but improved), other (tubular BS on left) Cardiac/Chest: regular rate, rhythm, No edema Abdomen: non-tender, soft, No distended Skin: normal color, warm/dry Lymphatic: no adenopathy Extremities: No pedal edema Neuro/Psych: alert, normal mood/affect, oriented x 3 ICD10 Worksheet Patient Problems: Problems Problem Status Onset Pneumonia Acute
[2017-08-23] MEDS: oxyCODONE IR 5 MG TAB PO PRN ×3 (03:42→20:19)
[2017-08-23 04:58] LABS: % IMMATURE GRANULYOCYTES 1.9 % (0.0-1.1); ADD DIFF? NO; ADD MORPH? NO; ADD SCAN? NO; ATYPICAL LYMPHOCYTE FLAG 30 (0-99); FRAGMENT RBC FLAG 0 (0-99); HEMATOCRIT 29.8 % (40.0-51.0); LEFT SHIFT FLG 10 (0-99); LIPEMIA HEMOLYSIS FLAG 80 (0-99); MEAN CELL HEMOGLOBIN 31.7 pg (27.9-34.1); MEAN CELL HEMOGLOBIN CONCENTR. 33.6 g/dL (32.4-36.7); MEAN CELL VOLUME 94.6 fL (81.5-99.8); MEAN PLATELET VOLUME 8.3 fL (8.7-11.7); PLATELET CLUMPS FLAG 0 (0-99); PLATELET COUNT 603 10^3/uL (150-400); RED BLOOD CELL COUNT 3.15 10^6/uL (4.40-6.38); RED CELL DISTRIBUTION WIDTH 14.6 % (11.5-15.2)
[2017-08-23 05:18] LABS: ANION GAP 3 mEq/L (8-16); CALCIUM 8.2 mg/dL (8.5-10.4); CARBON DIOXIDE 37 mEq/l (22-31); CHLORIDE 97 mEq/L (97-110); CREATININE 0.6 mg/dL (0.7-1.3); GLOMERULAR FILTRATION RATE > 60; GLUCOSE 78 mg/dL (70-100); POTASSIUM 4.5 mEq/L (3.5-5.2); SODIUM 137 mEq/L (134-144)
[2017-08-23] MEDS: IPRATROPIUM/ALBUTEROL 3 ML DEYVIAL IH SCH ×5 (06:38→21:38)
[2017-08-23] MEDS: ACETYLCYSTEINE 10% 30 ML VIAL IH SCH ×4 (06:38→21:38)
--- NOTE | 2017-08-23 08:25 | HOSPPROG ---
Hospitalist Progress Note Assessment/Plan: #Acute on chronic hypoxemic resp failure: due to PNA. Cont aggressive pulm toileting -pt will talk with his roommate who is a heavy smoker inside, han since will need O2 at homw #Invasive pneumococcal PNA with necrosis: personally-reviewed CT chest. Cont IV CTX. Will need 4 weeks therapy; hope to change to FQs #Strep pneumo bacteremia: positive cxs 08/12, NGTD since 08/14 #COPD: cont inhalers #Nicotine dependence: patch #Metabolic alkalosis: #Leukocytosis: resolved Diet: regular #DVT ppx: Lovenox #Disp: requires inpt admission with oxygen requirements, IV abx Subjective: SOB with exertion to bathroom. Hard to walk due to pain in feet. Has good appetite Objective: Vital Signs Temp Pulse Resp BP Pulse Ox 36.5 C 83 14 115/84 H 94 08/23/17 07:38 08/23/17 07:38 08/23/17 07:38 08/23/17 07:38 08/23/17 07:38 Laboratory Results 08/23/17 04:42 08/23/17 04:42 08/22/17 08/23/17 08/24/17 05:59 05:59 05:59 Intake Total 1660 650 Balance 1660 650 PT 15.1 SEC (12.0-15.0) H 08/13/17 04:18 INR 1.19 (0.83-1.16) H 08/13/17 04:18 - Physical Exam Constitutional: cachectic Eyes: PERRL Ears, Nose, Mouth, Throat: moist mucous membranes Cardiovascular: regular rate and rhythym, no murmur, rub, or gallop Respiratory: reduced air movement (decreased air movement throughout BL lungs L> R) Gastrointestinal: normoactive bowel sounds, soft, non-tender abdomen Genitourinary: no bladder fullness Skin: warm Musculoskeletal: full muscle strength Neurologic: AAOx3, CN II-XII Intact Psychiatric: interacting appropriately ICD10 Worksheet Patient Problems: Problems Problem Status Onset Pneumonia Acute
[2017-08-23] MEDS: NICOTINE 21 MG/24 HR PATCH TD SCH (10:16)
[2017-08-23] MEDS: GABAPENTIN 300 MG CAP PO SCH ×2 (10:20→20:13)
[2017-08-23] MEDS: predniSONE 20 MG TAB PO SCH (10:20)
[2017-08-23] MEDS: ENOXAPARIN 40 MG/0.4 ML SYR SC SCH (10:20)
[2017-08-23] MEDS: cefTRIAXone 2 GM in D5W 50 ML IV SCH (10:37)
--- NOTE | 2017-08-23 13:36 | PCMIDPN ---
Assessment/Plan: Assessment: Left-sided pneumonia-with bacteremia secondary to Streptococcus pneumoniae. Patient is clearly clinically improved at this point on IV ceftriaxone. Still needs significant O2 support but doing better. Plan: 1. Continue IV ceftriaxone. 2. Follow clinical course. 3. Follow up repeat blood cultures. 08/19/17 22:44 08/21/17 20:25 08/23/17 13:29 Subjective: Patient is resting comfortably in his hospital bed. He notes he is bringing up scant amounts of sputum. No fevers or chills. Tolerating ceftriaxone without issue. Objective: Ceftriaxone # 10 Vital Signs Temp Pulse Resp BP Pulse Ox 36.6 C 89 16 108/72 96 08/23/17 12:55 08/23/17 12:55 08/23/17 12:55 08/23/17 12:55 08/23/17 12:55 Laboratory Results 08/23/17 04:42 08/23/17 04:42 08/22/17 08/23/17 08/24/17 05:59 05:59 05:59 Intake Total 1660 650 Balance 1660 650 - Physical Exam General Appearance: WD/WN, alert, no apparent distress, thin, non-toxic Respiratory: bronchial breath sounds, No lungs clear, No normal breath sounds, No respiratory distress, No crackles Cardiac/Chest: regular rate, rhythm, No tachycardia Extremities: non-tender, normal inspection Skin: normal color, warm/dry, No rash Neuro/Psych: alert, normal mood/affect, oriented x 3 ICD10 Worksheet Patient Problems: Problems Problem Status Onset Pneumonia Acute
--- NOTE | 2017-08-23 14:33 | ASMTCMCOM ---
CM Note CM Note Notes: Pt will likely need SNf at [place]. ULTC submitted and someone from [facility] should be out to evaluate by Saturday. Pt qualifies financially for regular Medicaid. Once approved, he will have his old Medicaid # ([id number]). Pt qualifies for LTC Medicaid but it could be to 90 days before he is approved. Called [facility] about admitting pt and they declined because he does not currently have LTC Medicaid and they do not want to take the financial risk. Date Signed: 08/23/2017 02:32 PM Electronically Signed By:Tisha Shah LCSW
--- NOTE | 2017-08-23 15:48 | ASMTCMCOM ---
CM Note CM Note Notes: Maura from [facility] ([phone]) came to assess pt for LTC Medicaid bed today. She called Case mgmt to state that pt does not meet the criteria for a bed because he is independent with his ADLs. C/M will f/u with pt to discuss his living situation and if he will be able to return home with HC. Pt will likely qualify for regular Medicaid so he will able to get IV ABX in his home if that is the DC plan. Date Signed: 08/23/2017 03:48 PM Electronically Signed By:Tisha Shah LCSW
[2017-08-24] MEDS: IPRATROPIUM/ALBUTEROL 3 ML DEYVIAL IH SCH ×6 (02:07→20:32)
[2017-08-24 05:33] LABS: ANION GAP 4 mEq/L (8-16); CALCIUM 8.4 mg/dL (8.5-10.4); CARBON DIOXIDE 36 mEq/l (22-31); CHLORIDE 98 mEq/L (97-110); CREATININE 0.6 mg/dL (0.7-1.3); GLOMERULAR FILTRATION RATE > 60; GLUCOSE 76 mg/dL (70-100); POTASSIUM 4.9 mEq/L (3.5-5.2); SODIUM 138 mEq/L (134-144)
[2017-08-24] MEDS: ACETYLCYSTEINE 10% 30 ML VIAL IH SCH ×3 (06:28→17:27)
[2017-08-24] MEDS: cefTRIAXone 2 GM in D5W 50 ML IV SCH (10:37)
[2017-08-24] MEDS: NICOTINE 21 MG/24 HR PATCH TD SCH (10:38)
[2017-08-24] MEDS: predniSONE 20 MG TAB PO SCH (10:38)
[2017-08-24] MEDS: GABAPENTIN 300 MG CAP PO SCH ×2 (10:38→20:12)
[2017-08-24] MEDS: ENOXAPARIN 40 MG/0.4 ML SYR SC SCH (10:46)
--- NOTE | 2017-08-24 11:52 | PCMIDPN ---
Assessment/Plan: 1. Invasive necrotizing pneumococcal pneumonia with sepsis: Much improved. Continue ceftriaxone as is while in-house, with plans to transition to oral fluoroquinolone when discharged. Liver function tests on ceftriaxone or fine on August 22. Subjective: In good spirits. Sitting in chair watching the TV. No diarrhea. Still coughing up putrid sputum. Objective: Ceftriaxone 2 g IV daily day 12 Afebrile 94% on 4 L Vital Signs Temp Pulse Resp BP Pulse Ox 36.6 C 100 18 124/79 H 94 08/24/17 07:38 08/24/17 10:55 08/24/17 10:55 08/24/17 07:38 08/24/17 10:55 Laboratory Results 08/23/17 04:42 08/24/17 03:50 08/23/17 08/24/17 08/25/17 05:59 05:59 04:59 Intake Total 650 1700 Balance 650 1700 Blood cultures sterile HIV testing negative - Physical Exam General Appearance: cachetic EENT: other (False teeth), No thrush Respiratory: other (Bronchial breath sounds left base, some crackles right upper lung dee. No wheeze.) Cardiac/Chest: regular rate, rhythm Abdomen: non-tender, soft Skin: No rash ICD10 Worksheet Patient Problems: Problems Problem Status Onset Pneumonia Acute
[2017-08-24] MEDS: oxyCODONE IR 5 MG TAB PO PRN ×2 (13:29→22:35)
--- NOTE | 2017-08-24 15:26 | HOSPPROG ---
Hospitalist Progress Note Assessment/Plan: #Acute on chronic hypoxemic resp failure: due to PNA. Cont aggressive pulm toileting -pt will talk with his roommate who is a heavy smoker inside, han since will need O2 at homw #Invasive pneumococcal PNA with necrosis: personally-reviewed CT chest. Cont IV CTX. Will need 4 weeks therapy; hope to change to FQs #Strep pneumo bacteremia: positive cxs 08/12, NGTD since 08/14 #Urinary hesitancy: new. Check UA. Not on anti-cholinergics #COPD: cont inhalers #Nicotine dependence: patch #Metabolic alkalosis: improved. #Leukocytosis: resolved Diet: regular #DVT ppx: Lovenox #Disp: requires inpt admission with oxygen requirements, IV abx Subjective: cannot completely drain bladder. New symptom here Objective: Vital Signs Temp Pulse Resp BP Pulse Ox 36.6 C 100 18 124/79 H 94 08/24/17 07:38 08/24/17 10:55 08/24/17 10:55 08/24/17 07:38 08/24/17 10:55 Laboratory Results 08/23/17 04:42 08/24/17 03:50 08/23/17 08/24/17 08/25/17 05:59 05:59 04:59 Intake Total 650 1700 Balance 650 1700 PT 15.1 SEC (12.0-15.0) H 08/13/17 04:18 INR 1.19 (0.83-1.16) H 08/13/17 04:18 - Physical Exam Constitutional: no apparent distress Eyes: PERRL Ears, Nose, Mouth, Throat: moist mucous membranes Cardiovascular: regular rate and rhythym, no murmur, rub, or gallop Respiratory: other (decreased BS at left mid-lung to base, diminshed at right base) Genitourinary: no bladder fullness, no bladder tenderness Skin: warm Musculoskeletal: full muscle strength Neurologic: AAOx3, CN II-XII Intact Psychiatric: interacting appropriately ICD10 Worksheet Patient Problems: Problems Problem Status Onset Pneumonia Acute
[2017-08-25] MEDS: IPRATROPIUM/ALBUTEROL 3 ML DEYVIAL IH SCH ×7 (00:21→23:20)
[2017-08-25] MEDS: ACETYLCYSTEINE 10% 30 ML VIAL IH SCH ×5 (00:22→23:17)
[2017-08-25 03:47] LABS: COLOR PALE YELLOW; LEUKOCYTE ESTERASE,URINE NEGATIVE (NEGATIVE); NITRITE,URINE NEGATIVE (NEGATIVE)
[2017-08-25] MEDS: oxyCODONE IR 5 MG TAB PO PRN (04:03)
[2017-08-25 05:09] LABS: ANION GAP 4 mEq/L (8-16); CALCIUM 8.5 mg/dL (8.5-10.4); CARBON DIOXIDE 36 mEq/l (22-31); CHLORIDE 98 mEq/L (97-110); CREATININE 0.6 mg/dL (0.7-1.3); GLOMERULAR FILTRATION RATE > 60; GLUCOSE 71 mg/dL (70-100); POTASSIUM 4.6 mEq/L (3.5-5.2); SODIUM 138 mEq/L (134-144)
[2017-08-25] MEDS: NICOTINE 21 MG/24 HR PATCH TD SCH (09:13)
[2017-08-25] MEDS: GABAPENTIN 300 MG CAP PO SCH ×2 (09:14→20:06)
[2017-08-25] MEDS: predniSONE 20 MG TAB PO SCH (09:14)
[2017-08-25] MEDS: ENOXAPARIN 40 MG/0.4 ML SYR SC SCH (09:14)
[2017-08-25] MEDS: cefTRIAXone 2 GM in D5W 50 ML IV SCH (09:14)
[2017-08-25] MEDS ORDERED: NS 500 ML IV ONE (12:28)
--- NOTE | 2017-08-25 13:47 | ASMTCMCOM ---
CM Note CM Note Notes: Talked to pt about DC plan. Pt understands that he is does not qualify for LTC Medicaid bed per [facility]. Pt has not discussed with his roommate yet that he will needs O2 at home. He does plan to discuss this with his roommate and thinks he would be ok smoking in his bedroom. ID note today indicated that pt may DC on oral ABX. C/M will wait to make referral for IV ABX at home until the DC needs are clear. C/M to follow. Date Signed: 08/25/2017 01:47 PM Electronically Signed By:Tisha Shah LCSW
--- NOTE | 2017-08-25 14:28 | HOSPPROG ---
Hospitalist Progress Note Assessment/Plan: #Acute on chronic hypoxemic resp failure: due to PNA. Cont aggressive pulm toileting -pt will talk with his roommate who is a heavy smoker inside, han since will need O2 at home #Invasive pneumococcal PNA with necrosis: personally-reviewed CT chest. Cont IV CTX. Will need 4 weeks therapy; hope to change to FQs #Strep pneumo bacteremia: positive cxs 08/12, NGTD since 08/14 #Urinary hesitancy: negative UA #COPD: cont inhalers #Nicotine dependence: patch #Metabolic alkalosis: improved. #Leukocytosis: resolved Diet: regular #DVT ppx: Lovenox #Disp: requires inpt admission with oxygen requirements, IV abx Subjective: mild dizziness today Objective: Vital Signs Temp Pulse Resp BP Pulse Ox 36.5 C 92 16 104/68 92 08/25/17 08:59 08/25/17 14:05 08/25/17 13:13 08/25/17 14:05 08/25/17 13:13 Laboratory Results 08/23/17 04:42 08/25/17 04:48 08/24/17 08/25/17 08/26/17 06:59 05:59 05:59 Intake Total Output Total Balance PT 15.1 SEC (12.0-15.0) H 08/13/17 04:18 INR 1.19 (0.83-1.16) H 08/13/17 04:18 - Physical Exam Constitutional: no apparent distress Eyes: PERRL Ears, Nose, Mouth, Throat: moist mucous membranes Cardiovascular: regular rate and rhythym Respiratory: other (dull BS at both bases L>R) Gastrointestinal: normoactive bowel sounds, soft, non-tender abdomen Genitourinary: no bladder fullness Skin: warm Musculoskeletal: full muscle strength Neurologic: AAOx3, CN II-XII Intact Psychiatric: interacting appropriately ICD10 Worksheet Patient Problems: Problems Problem Status Onset Pneumonia Acute
[2017-08-26] MEDS: IPRATROPIUM/ALBUTEROL 3 ML DEYVIAL IH SCH ×5 (05:10→21:21)
[2017-08-26] MEDS: ACETYLCYSTEINE 10% 30 ML VIAL IH SCH (05:11)
[2017-08-26 06:12] LABS: ANION GAP 8 mEq/L (8-16); CALCIUM 8.4 mg/dL (8.5-10.4); CARBON DIOXIDE 31 mEq/l (22-31); CHLORIDE 99 mEq/L (97-110); CREATININE 0.7 mg/dL (0.7-1.3); GLOMERULAR FILTRATION RATE > 60; GLUCOSE 70 mg/dL (70-100); SODIUM 138 mEq/L (134-144)
[2017-08-26] MEDS: oxyCODONE IR 5 MG TAB PO PRN ×2 (08:08→21:36)
[2017-08-26] MEDS: GABAPENTIN 300 MG CAP PO SCH ×2 (08:08→21:33)
[2017-08-26] MEDS: predniSONE 20 MG TAB PO SCH (08:09)
[2017-08-26] MEDS: ENOXAPARIN 40 MG/0.4 ML SYR SC SCH (08:09)
[2017-08-26] MEDS: cefTRIAXone 2 GM in D5W 50 ML IV SCH (08:09)
[2017-08-26] MEDS: NICOTINE 21 MG/24 HR PATCH TD SCH (08:09)
--- NOTE | 2017-08-26 13:44 | PCMIDPN ---
Assessment/Plan: Assessment/Plan: * Invasive pneumococcal disease due to severe left lower lobe pneumonia which may have necrotizing element with small abscess formation within bulla: Continued slow clinical improvement. Now has completed 2 weeks of ceftriaxone. Plan 4 weeks of therapy in total. Will need repeat CT scan of chest prior to completion of antibiotic therapy. Patient can complete therapy with oral levofloxacin once ready for discharge from hospitalist perspective. 08/26/17 13:42 08/26/17 13:43 Subjective: Patient with mild left-sided pleuritic chest pain. Cough has decreased. Able to ambulate on unit. Objective: Vital Signs Temp Pulse Resp BP Pulse Ox 36.7 C 79 14 128/84 H 95 08/26/17 04:27 08/26/17 10:05 08/26/17 10:05 08/26/17 09:03 08/26/17 10:05 Laboratory Results 08/23/17 04:42 08/26/17 05:27 08/25/17 08/26/17 08/27/17 05:59 05:59 05:59 Intake Total 2425 500 Output Total 350 Balance 2425 150 Ceftriaxone # 14 - Physical Exam General Appearance: alert, no apparent distress EENT: No scleral icterus, No thrush Respiratory: bronchial breath sounds (Fdc up left lung field) Cardiac/Chest: regular rate, rhythm Abdomen: non-tender, No distended ICD10 Worksheet Patient Problems: Problems Problem Status Onset Pneumonia Acute
--- NOTE | 2017-08-26 14:18 | HOSPPROG ---
Hospitalist Progress Note Assessment/Plan: #Acute on chronic hypoxemic resp failure: due to PNA. Cont aggressive pulm toileting -pt will talk with his roommate who is a heavy smoker inside, han since will need O2 at home #Invasive pneumococcal PNA with necrosis: personally-reviewed CT chest. Transition to LQ 750mg for 2 weeks from 08/26. May DC tomorrow. FU Dr. Pulido, will need repeat CT #Strep pneumo bacteremia: positive cxs 08/12, NGTD since 08/14 #Urinary hesitancy: negative UA #COPD: cont inhalers #Nicotine dependence: patch #Metabolic alkalosis: improved. #Leukocytosis: resolved Diet: regular #DVT ppx: Lovenox #Disp: requires inpt admission with oxygen requirements, IV abx. Can DC tomorrow Subjective: SOB improved Objective: Vital Signs Temp Pulse Resp BP Pulse Ox 36.7 C 79 14 128/84 H 95 08/26/17 04:27 08/26/17 10:05 08/26/17 10:05 08/26/17 09:03 08/26/17 10:05 Laboratory Results 08/23/17 04:42 08/26/17 05:27 08/25/17 08/26/17 08/27/17 05:59 05:59 05:59 Intake Total 2425 500 Output Total 350 Balance 2425 150 PT 15.1 SEC (12.0-15.0) H 08/13/17 04:18 INR 1.19 (0.83-1.16) H 08/13/17 04:18 - Physical Exam Constitutional: no apparent distress Eyes: PERRL Ears, Nose, Mouth, Throat: moist mucous membranes Cardiovascular: regular rate and rhythym Respiratory: other (bronchial breath sounds left mid-lung to base. Diminshed BS elsewhere) Gastrointestinal: normoactive bowel sounds Genitourinary: no bladder fullness Skin: warm Musculoskeletal: full muscle strength Neurologic: AAOx3 Psychiatric: interacting appropriately ICD10 Worksheet Patient Problems: Problems Problem Status Onset Pneumonia Acute
--- NOTE | 2017-08-26 15:38 | PDHOMEO2F ---
Home Oxygen Face to Face Home Orders: I certify that a physician or a nurse practitioner or physician's executive staff assistant has had a [id number] encounter with this patient on the date of this order due to the diagnosis listed, which relates to the primary reason the patient requires home oxygen. Alternative treatments have been tried, or considered, and deemed ineffective. It is anticipated that supplemental oxygen will result in improvement with treatment. Home oxygen qualifying diagnosis: Strep PNA Home oxygen secondary diagnosis: COPD SpO2 on room air (%): 84 Frequency of home oxygen needed: continuous Home oxygen liters per minute: 3 Home oxygen delivery device: nasal cannula Concentrator: Yes E-tanks for mobility and back up: No I certify that, based on these findings, the home oxygen is medically necessary for this patient for the following length of time. Length of time home oxygen needed: 3 months
[2017-08-26] MEDS: TEMAZEPAM 15 MG CAP PO PRN (21:36)
[2017-08-27] MEDS: IPRATROPIUM/ALBUTEROL 3 ML DEYVIAL IH SCH ×4 (05:26→23:10)
[2017-08-27] MEDS: oxyCODONE IR 5 MG TAB PO PRN ×2 (06:42→21:08)
[2017-08-27] MEDS: cefTRIAXone 2 GM in D5W 50 ML IV SCH (10:12)
[2017-08-27] MEDS: ENOXAPARIN 40 MG/0.4 ML SYR SC SCH (10:13)
[2017-08-27] MEDS: predniSONE 20 MG TAB PO SCH (10:13)
[2017-08-27] MEDS: GABAPENTIN 300 MG CAP PO SCH ×2 (10:13→21:07)
[2017-08-27] MEDS: NICOTINE 21 MG/24 HR PATCH TD SCH (10:27)
--- NOTE | 2017-08-27 16:36 | HOSPPROG ---
Hospitalist Progress Note Assessment/Plan: 61 yo M with hx of COPD presenting with acute #Acute hypoxemic resp failure: secondary to PNA with copd exacerbation. Cont aggressive pulm toileting, working on ambulation, IS, OOB to chair #Invasive pneumococcal PNA with necrosis: personally-reviewed last cxr on 08/19 and will order repeat cxr for the am. Transition to LQ 750mg for 2 weeks from for a planned total [address] Pulido, will need repeat CT as an OP. #Strep pneumo bacteremia: positive cxs 08/12, NGTD since 08/14, abx as above #COPD, severe, with acute exacerbation: cont neb treatments and will need to dc on inhalers as he has none at home, patient would benefit from pulmonary f/u, has severe bullous emphysema bilaterally with 50 pack year smoking hx. #Nicotine dependence: patch # deconditioning: patient concerned about his ability to return home and complete his ADLs, very deconditioned, and relatively frail at baseline, does not appear to be eligible for snf, pt/ot cleared #Leukocytosis: resolved # protein calorie malnutrition: with BMI of 17, appears cachectic on exam and has had unexplained weight loss, dietary has been involved Diet: regular #DVT ppx: Lovenox Dispo: IP status, will dc in the next 1-2 days, would like to wean off of o2 and improve ambulation etc Subjective: no significant overnight events, patient notes that his breathing is better but that he is still very weak, working on ambulation Objective: Vital Signs Temp Pulse Resp BP Pulse Ox 36.9 C 98 18 98/65 L 98 08/27/17 11:53 08/27/17 11:53 08/27/17 11:53 08/27/17 11:53 08/27/17 11:53 Microbiology 08/16/17 14:30 Mycobacterial Smear (LITO) - Final Lung Left Lower Lobe - Bronchial Washings 08/14/17 Unknown Mycobacterial Smear (LITO) - Final Sputum, Expectorated 08/14/17 05:50 Mycobacterial Smear (LITO) - Final Sputum, Expectorated Laboratory Results 08/23/17 04:42 08/26/17 05:27 08/26/17 08/27/17 08/28/17 05:59 05:59 05:59 Intake Total 2425 2300 Output Total 350 Balance 2425 1950 PT 15.1 SEC (12.0-15.0) H 08/13/17 04:18 INR 1.19 (0.83-1.16) H 08/13/17 04:18 awake alert nad anicteric op clear rrr no mrg decreased bs on right and egophony on left soft nt nd no cce warm dry well perfused oriented appropriate - Time Spent With Patient Time Spent with Patient: greater than 35 minutes Time Spent with Patient: Greater than 35 minutes spent on this patients care, greater than 50% of time spent counseling, educating, and coordinating care regarding the above mentioned plan. ICD10 Worksheet Patient Problems: Problems Problem Status Onset Pneumonia Acute
--- NOTE | 2017-08-27 18:33 | ASMTCMCOM ---
CM Note CM Note Notes: Patient previously has had Medicaid and will most likely have this reinstated but it will take approximately three months. [employer], after review said patient does not meet criteria for LTC. At this point it appears patiients only option is to return home back to his apartment. The concern continues to be that he will need O2 and he has a roommate who smoke. This C/M received call from pts employer, Andria Callahan at [employer]. Patient has named her as his MDPOA. She said that she and the staff there want to do what they can to support him with the hope that he will be able to return to work with them. She said that staff there are the only "family: the patient has and are willing to help him with food and other things he might need. She requests a call when he is ready to discharge or when it is clear when this might happen so she can arrange support for him. Her number is [phone]. Dr. Hightower decided patient was not yet ready to disharge home. He will continue to be reassessed for discharge. Case management will follow. Date Signed: 08/27/2017 06:32 PM Electronically Signed By:ZOILA Villanueva
[2017-08-27] MEDS: TEMAZEPAM 15 MG CAP PO PRN (21:07)
[2017-08-28] MEDS: IPRATROPIUM/ALBUTEROL 3 ML DEYVIAL IH SCH ×2 (05:30→11:16)
[2017-08-28] MEDS: NICOTINE 21 MG/24 HR PATCH TD SCH (08:59)
[2017-08-28] MEDS: predniSONE 20 MG TAB PO SCH (08:59)
[2017-08-28] MEDS: GABAPENTIN 300 MG CAP PO SCH ×2 (08:59→21:18)
[2017-08-28] MEDS: ENOXAPARIN 40 MG/0.4 ML SYR SC SCH (09:00)
[2017-08-28] MEDS: cefTRIAXone 2 GM in D5W 50 ML IV SCH (09:29)
--- NOTE | 2017-08-28 11:35 | PCMIDPN ---
Assessment/Plan: Assessment: Left-sided pneumonia-with bacteremia secondary to Streptococcus pneumoniae. Patient is clearly clinically improved at this point on IV ceftriaxone. O2 support needs decreasing but desaturates with effort. Can policy change clerk to po Levaquin to complete a 4 week course once ready for discharge. Plan: 1. Continue IV ceftriaxone. 2. Follow clinical course. Subjective: Patient is resting comfortably in his bed. Denies any new complaints. No SOB. Some slight cough but not very productive. Good appetite. Objective: ceftriaxone # 16 Vital Signs Temp Pulse Resp BP Pulse Ox 36.6 C 86 18 104/61 93 08/28/17 08:10 08/28/17 11:16 08/28/17 11:16 08/28/17 08:10 08/28/17 11:16 Microbiology 08/16/17 14:30 Mycobacterial Smear (LITO) - Final Lung Left Lower Lobe - Bronchial Washings 08/14/17 Unknown Mycobacterial Smear (LITO) - Final Sputum, Expectorated 08/14/17 05:50 Mycobacterial Smear (LITO) - Final Sputum, Expectorated Laboratory Results 08/23/17 04:42 08/26/17 05:27 08/27/17 08/28/17 08/29/17 05:59 05:59 05:59 Intake Total 2300 500 Output Total 350 800 Balance 1950 -300 - Physical Exam General Appearance: WD/WN, alert, no apparent distress, thin, non-toxic Respiratory: lungs clear, No normal breath sounds (bronchial breath sounds on left but improved), No crackles, No stridor, No wheezing Cardiac/Chest: regular rate, rhythm, No tachycardia Extremities: non-tender, normal inspection Skin: normal color, warm/dry, No rash Neuro/Psych: alert, normal mood/affect, oriented x 3 ICD10 Worksheet Patient Problems: Problems Problem Status Onset Pneumonia Acute
[2017-08-28] MEDS: oxyCODONE IR 5 MG TAB PO PRN ×2 (15:09→21:18)
--- NOTE | 2017-08-28 15:32 | HOSPPROG ---
Hospitalist Progress Note Assessment/Plan: 61 yo M with hx of COPD presenting with acute respiratory failure with invasive pneumococcal pna and copd exacerbation #Acute hypoxemic resp failure: secondary to PNA with copd exacerbation. Cont aggressive pulm toileting, working on ambulation, IS, OOB to chair. Patient very reluctant to dc home with supplemental o2 as he will need to pay out of pocket. #Invasive pneumococcal PNA with necrosis: personally-reviewed repeat cxr, improved aeration of the left sided consolidation compared to prior. Plan for 2 weeks of levofloxacin from 08/26 for total 4 weeks of therapy. Will f/u with ID and require repeat CT prior to dc of abx. #Strep pneumo bacteremia: positive cxs 08/12, NGTD since 08/14, abx as above #COPD, severe, with acute exacerbation: patient would benefit from pulmonary f/u , has severe bullous emphysema bilaterally with 50 pack year smoking hx. Will transition to inhalers from nebs given improvement in breathing. Has been on pred 20 since arrival, will decrease to 10mg for 3 days and then 5 for 3 days given prolonged course of 20. #Nicotine dependence: patch # deconditioning: patient concerned about his ability to return home and complete his ADLs, very deconditioned, and relatively frail at baseline, does not appear to be eligible for snf, pt/ot cleared. Will continue to work on his mobility. #Leukocytosis: resolved # protein calorie malnutrition: with BMI of 17, appears cachectic on exam and has had unexplained weight loss, dietary has been involved Diet: regular #DVT ppx: Lovenox Dispo: IP status, will dc in the next 1-2 days, would like to wean off of o2 and improve ambulation etc Subjective: no significant overnight events, patient notes he is still very fatigued and feels weak but otherwise feels the same or perhaps slightly better than prior Objective: Vital Signs Temp Pulse Resp BP Pulse Ox 36.6 C 86 18 104/61 93 08/28/17 08:10 08/28/17 11:16 08/28/17 11:16 08/28/17 08:10 08/28/17 11:16 Microbiology 08/16/17 14:30 Mycobacterial Smear (LITO) - Final Lung Left Lower Lobe - Bronchial Washings 08/14/17 Unknown Mycobacterial Smear (LITO) - Final Sputum, Expectorated 08/14/17 05:50 Mycobacterial Smear (LITO) - Final Sputum, Expectorated Laboratory Results 08/23/17 04:42 08/26/17 05:27 08/27/17 08/28/17 08/29/17 05:59 05:59 05:59 Intake Total 2300 500 Output Total 350 800 Balance 1950 -300 PT 15.1 SEC (12.0-15.0) H 08/13/17 04:18 INR 1.19 (0.83-1.16) H 08/13/17 04:18 awake alert nad anicteric op clear rrr no mrg decreased bs scattered rhonchi on left soft nt nd no cce warm dry well perfused oriented appropriate ICD10 Worksheet Patient Problems: Problems Problem Status Onset Pneumonia Acute
[2017-08-28] MEDS ORDERED: predniSONE 20 MG TAB PO SCH (15:33)
[2017-08-28] MEDS: IPRATROPIUM/ALBUTEROL 4GM MDI IH SCH ×2 (15:56→20:18)
--- NOTE | 2017-08-28 16:54 | ASMTCMCOM ---
CM Note CM Note Notes: Pt will DC home on oral ABX. Pt discussed need for home O2 today with his roommate who visited. Pt will benefit from HC RN/OT. [facility] agreed to take pt while Medicaid pending. Per [employer], pt should be reviewed and approved for Medicaid soon. C/M will continue to follow. Date Signed: 08/28/2017 04:53 PM Electronically Signed By:Tisha Shah LCSW
[2017-08-28] MEDS: TEMAZEPAM 15 MG CAP PO PRN (21:17)
[2017-08-29] MEDS: IPRATROPIUM/ALBUTEROL 4GM MDI IH SCH ×4 (05:18→21:36)
[2017-08-29] MEDS: GABAPENTIN 300 MG CAP PO SCH ×2 (09:52→21:01)
[2017-08-29] MEDS: predniSONE 10 MG TAB PO SCH (09:53)
[2017-08-29] MEDS: ENOXAPARIN 40 MG/0.4 ML SYR SC SCH (09:53)
[2017-08-29] MEDS: NICOTINE 21 MG/24 HR PATCH TD SCH (09:57)
--- NOTE | 2017-08-29 11:01 | HOSPPROG ---
Hospitalist Progress Note Assessment/Plan: 61 yo M w severe L sided pneumonia sepsis: presnt on admit lactate normalized septic physiology has resolved pneumonia: severe pneumococcal pneumonia ceftriaxone antibiotic day switched to levofloxacin yesterday CT neg for hilar mass has been bronched cough now productive cytology neg ?TB: ruled out HIV neg weight loss: prealbumin low ensure started dietary to see 16 lb weight loss likely meet the definition of SPCM CODP: severe start combivent rapid wean of steroids neuropathy: neurontin proph: LMWH dispo: inpt Subjective: 08/28 cxr much improved, still w L sided air space disease (interp by me). case d/w dr tristan Objective: Vital Signs Temp Pulse Resp BP Pulse Ox 36.6 C 105 H 18 132/77 H 85 L 08/29/17 07:20 08/29/17 10:31 08/29/17 10:29 08/29/17 07:20 08/29/17 10:31 Laboratory Results 08/23/17 04:42 08/26/17 05:27 08/28/17 08/29/17 08/30/17 05:59 05:59 05:59 Intake Total 500 1650 350 Output Total 800 Balance -300 1650 350 PT 15.1 SEC (12.0-15.0) H 08/13/17 04:18 INR 1.19 (0.83-1.16) H 08/13/17 04:18 - Physical Exam Constitutional: no apparent distress, appears nourished Eyes: PERRL, anicteric sclera Ears, Nose, Mouth, Throat: moist mucous membranes, hearing normal Cardiovascular: regular rate and rhythym, no murmur, rub, or gallop Respiratory: no respiratory distress, other (improved L sided exam), No no rales or rhonchi Gastrointestinal: normoactive bowel sounds, soft, non-tender abdomen Genitourinary: no bladder fullness, No cr in urethra Skin: warm, normal color Musculoskeletal: full muscle strength Neurologic: AAOx3 Psychiatric: interacting appropriately ICD10 Worksheet Patient Problems: Problems Problem Status Onset Pneumonia Acute
--- NOTE | 2017-08-29 14:31 | ASMTCMCOM ---
CM Note CM Note Notes: Chart reviewed. Met with patient to review dc POC. [facility] to accept patient and Dr. Arrieta to accept care of patient, Patient will need home oxygen. Appointment scheduled at Dr. Green on SaturdaySeptember 04 at 4:30 pm. Call to [facility] to alert them of PCP. Call to [facility] in [place] [phone]. Per retail wireless sales representative Erika, we can fax orders to them, call them and they will send a person here to set up the patient with home oxygen services. CM to follow. Date Signed: 08/29/2017 02:17 PM Electronically Signed By:Elinor Jeong RN
[2017-08-29] MEDS: oxyCODONE IR 5 MG TAB PO PRN (21:01)
[2017-08-29] MEDS: TEMAZEPAM 15 MG CAP PO PRN (21:02)
[2017-08-30] MEDS: IPRATROPIUM/ALBUTEROL 4GM MDI IH SCH ×2 (05:51→08:19)
[2017-08-30 07:26] VITALS: BP 113/78; TEMP 98.3
[2017-08-30] MEDS: oxyCODONE IR 5 MG TAB PO PRN (08:16)
--- NOTE | 2017-08-30 09:31 | PDHOMEO2F ---
Home Oxygen Face to Face Home Orders: I certify that a physician or a nurse practitioner or physician's senior assistant manager has had a srby-af-jgum encounter with this patient on the date of this order due to the diagnosis listed, which relates to the primary reason the patient requires home oxygen. Alternative treatments have been tried, or considered, and deemed ineffective. It is anticipated that supplemental oxygen will result in improvement with treatment. Home oxygen qualifying diagnosis: severe pneumococcal pneumonia Home oxygen secondary diagnosis: emphysema SpO2 on room air (%): 82 Frequency of home oxygen needed: continuous Home oxygen liters per minute: 2 Home oxygen delivery device: nasal cannula Concentrator: No E-tanks for mobility and back up: Yes If ordering portable O2, is the patient mobile in the home?: Yes I certify that, based on these findings, the home oxygen is medically necessary for this patient for the following length of time. Length of time home oxygen needed: 99 years
[2017-08-30] MEDS: GABAPENTIN 300 MG CAP PO SCH (09:36)
--- NOTE | 2017-08-30 09:36 | PDIAF ---
- Diagnosis Diagnosis: pneumonia Code Status: Full Code - Medication Management Discharge Medications: Medications to Continue on Transfer NK [No Known Home Meds] 08/12/17 [Last Taken Unknown] Discharge Medications: Refer to the Discharge Home Medication list for PRN reason. - Orders Services needed: Home Senior Living Care Face to Face: I certify that this patient was under my care and that I had the required [id number] encounter meeting the encounter requirements on the discharge day. My findings support the fact that the patient is homebound as defined in Home Care Face to Face Continued: CMS Chapter 7 Medicare Benefits Manual 30.1.1 , The condition of the patient is such that there exists a normal inability to leave home and consequently, leaving home would require a considerable and taxing effort. Isolation Type: None Oxygen: yes Diet Recommendation: no restrictions on diet Diet Texture: Regular Texture Diet - Follow Up Care Current Providers and Referrals: Brandt Pulido MD [Medical Doctor] - 09/05/17 2:00 pm NONE *PRIMARY CARE P,. [Primary Care Provider] - As per Instructions
[2017-08-30] MEDS: ENOXAPARIN 40 MG/0.4 ML SYR SC SCH (09:37)
[2017-08-30] MEDS: predniSONE 10 MG TAB PO SCH (09:37)
[2017-08-30] MEDS: NICOTINE 21 MG/24 HR PATCH TD SCH (09:37)
--- NOTE | 2017-08-30 09:39 | HOSPPROG ---
Hospitalist Progress Note Assessment/Plan: 61 yo M w severe L sided pneumonia sepsis: presnt on admit lactate normalized septic physiology has resolved pneumonia: severe pneumococcal pneumonia ceftriaxone antibiotic day switched to levofloxacin yesterday CT neg for hilar mass has been bronched cough now productive cytology neg ?TB: ruled out HIV neg weight loss: prealbumin low ensure started dietary to see 16 lb weight loss likely meet the definition of SPCM CODP: severe start combivent rapid wean of steroids neuropathy: neurontin proph: LMWH dispo: home today > 30 minutes on dc Subjective: feels well. amenable to discharge Objective: Vital Signs Temp Pulse Resp BP Pulse Ox 36.8 C 98 20 113/78 92 08/30/17 07:25 08/30/17 08:22 08/30/17 08:22 08/30/17 07:25 08/30/17 08:22 Laboratory Results 08/23/17 04:42 08/26/17 05:27 08/29/17 08/30/17 08/31/17 05:59 05:59 05:59 Intake Total 1650 1270 Balance 1650 1270 PT 15.1 SEC (12.0-15.0) H 08/13/17 04:18 INR 1.19 (0.83-1.16) H 08/13/17 04:18 - Physical Exam Constitutional: no apparent distress, appears nourished Eyes: PERRL, anicteric sclera Ears, Nose, Mouth, Throat: moist mucous membranes, hearing normal Cardiovascular: regular rate and rhythym, no murmur, rub, or gallop Respiratory: other (L lung exam improved) Gastrointestinal: normoactive bowel sounds, soft, non-tender abdomen Genitourinary: No cr in urethra Skin: warm, normal color Musculoskeletal: full muscle strength Neurologic: AAOx3 Psychiatric: interacting appropriately ICD10 Worksheet Patient Problems: Problems Problem Status Onset Pneumonia Acute
[2017-08-30 10:24] VITALS: RESP 16
[2017-08-30 10:39] VITALS: PULSE 94; O2SAT 87
--- NOTE | 2017-08-30 11:27 | ASMTCMCOM ---
CM Note CM Note Notes: Patietn medically stable for discharge. He is to have [facility] home care as well as home oxygen. Provided with taxi voucher for transport home. CM available if other needs arise. Date Signed: 08/30/2017 11:26 AM Electronically Signed By:Elinor Jeong RN
--- NOTE | 2017-08-30 15:52 | GDS ---
[f rep st] DISCHARGE SUMMARY DISCHARGE DIAGNOSES: 1. Severe left-sided pneumococcal pneumonia. 2. Streptococcal bacteremia. 3. Emphysema. 4. Neuropathy. 5. Tobacco use. 6. Hypoxemic respiratory failure. HOSPITAL COURSE: Please see the admission history and physical by Dr. Moody Spencer. The patient p resented with malaise, cough, night sweats, and fevers. There was some concern he initially had tube rculosis. He was ruled out for TB. He had a chest CT showing no mass and pneumonia with pus filled bullae. He underwent bronchoscopy, which showed no endobronchial lesions, and the path was negative for malignancy. He was initially hospitalized in the Intensive Care Unit, transferred to the floor. Given his strep bacteremia, which had cleared, the patient received 4 weeks of antibiotics. The patient is currently stable on a tapered course of steroids, oral levofloxacin therapy, Combivent , p.r.n. albuterol, and a nicotine patch. He is discharged home with home care. I have established a new primary care physician with him with Dr. La Arrieta. He has p.r.n. albuterol. /[id number]/MODL
--- NOTE | 2017-08-30 16:42 | ASDISCHSUM ---
Discharge Information Plan Status:Home with Home Health Medically Cleared to Leave:08/29/2017 Discharge Date:08/30/2017 02:17 PM CM D/C Disposition:Home Health Service [facility] D/C Disposition:Home, Routine, Self-Care Projected Discharge Date:08/30/2017 12:00 AM Transportation at D/C:Cab Voucher Discharge Delay Reason: Follow-Up Date:08/30/2017 12:00 AM Discharge Slot: Final Diagnosis:PNA, Pneumococcal bacteremia, Emphysema Placement Information Referral Type:*Home Health Care Services Referral ID:[id number] Provider Name:[facility] Care [address] [address] 2: City:[place] Selection Factors: State:[place] Patient Contact Information Contact Name:LEONILA Relationship:Other Address: Home Phone: Work Phone: City: [facility] Phone: [facility]/Zip Code: Email: Financial Information Financial Class:Self-Pay Primary Plan Desc:SELF PAY Primary Plan Number: Secondary Plan Desc: Secondary Plan Number: Assessment Information [facility] Initial CM Assessment Living Arrangements What is your living Answers: Alone arrangement? Who do you live with? Type Of Residence What kind of residence do Answers: House you live in? Discharge Plan Comments Coordination Status Comments Notes: Pt is a 61 y/o man admitted w/ pneumonia. Pt is currently on droplet precaution. PT and OT are recommending home independent. Anticipates that pt will not have any needs at time of d/c. CM available for changes. Date Signed: 08/13/2017 03:12 PM Electronically Signed By:MARINA Lucero [facility] CM Progress Note CM Note CM Note Notes: Dc needs unclear, pt will likely be independent but may need IV antibiotics. Pt has been screened for Medicaid, CM w/f. Date Signed: 08/16/2017 03:48 PM Electronically Signed By:Rosi Lacey RN [facility] CM Progress Note CM Note CM Note Notes: Patient continues to be on very high levels of O2 and ABX. Therapies have evaluated and feel that patient won't have therapy needs on discharge. Date Signed: 08/19/2017 03:03 PM Electronically Signed By:Corrie Dolan LCSW [facility] CM Progress Note CM Note CM Note Notes: Andria Callahan, [facility], patient's employer called to say that she was concerned about patient's living environment. She reports that patient lives w/a roommate who smokes and that he doesn't smoke outside. She wondered if he might qualify to go to a SNF. Patient "Self Pay" and was screened for Medicaid, may be "pending" at this time. If patient needs IV ABX and O2 he might qualify. If Medications are PO and O2 needs are under 6L, he can probably return home. Patient is also a smoker. He is cooperative and willing to go where he needs to go. Date Signed: 08/20/2017 04:29 PM Electronically Signed By:Corrie Dolan LCSW [facility] Progress Note CM Note CM Note Notes: I spoke with patient about discharge planning. He is still not able to articulate what he wants upon d/c but he does understand that he will need 4 weeks total of IV antibiotics and O2 therapy. I explained that he could have these services at home or at a SNF, and patient says that his roommate situation makes home therapy unappealing. Further complicating things is his lack of insurance. A Medicaid application was submitted 08/13, and he will also be screened for longitudinal float operator Medicaid which he would need for a SNF. I submitted the [facility] form today so that an painter from [facility] can screen him for SNF eligibility. Patient agreed to revisit this conversation tomorrow. Date Signed: 08/21/2017 04:08 PM Electronically Signed By:Erma Chaudhry RN [facility] Progress Note CM Note CM Note Notes: Pt will likely need SNf at [place]. ULTC submitted and someone from [facility] should be out to evaluate by Saturday. Pt qualifies financially for regular Medicaid. Once approved, he will have his old Medicaid # ([id number]). Pt qualifies for LTC Medicaid but it could be to 90 days before he is approved. Called [facility] about admitting pt and they declined because he does not currently have LTC Medicaid and they do not want to take the financial risk. Date Signed: 08/23/2017 02:32 PM Electronically Signed By:Tisha Shah LCSW [facility] CM Progress Note CM Note CM Note Notes: Maura from [facility] ([phone]) came to assess pt for LTC Medicaid bed today. She called Case mgmt to state that pt does not meet the criteria for a bed because he is independent with his ADLs. C/M will f/u with pt to discuss his living situation and if he will be able to return home with HC. Pt will likely qualify for regular Medicaid so he will able to get IV ABX in his home if that is the DC plan. Date Signed: 08/23/2017 03:48 PM Electronically Signed By:Tisha Shah LCSW [facility] CM Progress Note CM Note CM Note Notes: Talked to pt about DC plan. Pt understands that he is does not qualify for LT Medicaid bed per [facility]. Pt has not discussed with his roommate yet that he will needs O2 at home. He does plan to discuss this with his roommate and thinks he would be ok smoking in his bedroom. ID note today indicated that pt may DC on oral ABX. C/M will wait to make referral for IV ABX at home until the DC needs are clear. C/M to follow. Date Signed: 08/25/2017 01:47 PM Electronically Signed By:Tisha Shah LCSW [facility] CM Progress Note CM Note CM Note Notes: Patient previously has had Medicaid and will most likely have this reinstated but it will take approximately three months. [facility], after review said patient does not meet criteria for LTC. At this point it appears patiients only option is to return home back to his apartment. The concern continues to be that he will need O2 and he has a roommate who smoke. This C/M received call from pts employer, Andria London at [employer]. Patient has named her as his MDPOA. She said that she and the staff there want to do what they can to support him with the hope that he will be able to return to work with them. She said that staff there are the only "family: the patient has and are willing to help him with food and other things he might need. She requests a call when he is ready to discharge or when it is clear when this might happen so she can arrange support for him. Her number is [phone]. Dr. Hightower decided patient was not yet ready to disharge home. He will continue to be reassessed for discharge. Case management will follow. Date Signed: 08/27/2017 06:32 PM Electronically Signed By:ZOILA Villanueva NEDRA NEDRA Length of stay for Answers: 14 days or more current admission Acuity / Level of Care Answers: Was the patient admitted to hospital via the emergency department? Yes: Emergency dept visits in Answers: 0 last 6 months Score: 10 Date Signed: 08/28/2017 09:41 AM Electronically Signed By:Tisha Shah LCSW [facility] CM Progress Note CM Note CM Note Notes: Pt will DC home on oral ABX. Pt discussed need for home O2 today with his roommate who visited. Pt will benefit from HC RN/OT. [facility] agreed to take pt while Medicaid pending. Per [employer], pt should be reviewed and approved for Medicaid soon. C/M will continue to follow. Date Signed: 08/28/2017 04:53 PM Electronically Signed By:Tisha Shah LCSW [facility] CM Progress Note CM Note CM Note Notes: Chart reviewed. Met with patient to review dc POC. [facility] to accept patient and Dr. Arrieta to accept care of patient, Patient will need home oxygen. Appointment scheduled at Dr. Green on SaturdaySeptember 04 at 4:30 pm. Call to [facility] to alert them of PCP. Call to [facility] in [place] [phone]. Per customer sales representative Erika, we can fax orders to them, call them and they will send a person here to set up the patient with home oxygen services. CM to follow. Date Signed: 08/29/2017 02:17 PM Electronically Signed By:Elinor Jeong RN [facility] CM Progress Note CM Note CM Note Notes: Kt medically stable for discharge. He is to have HC home care as well as home oxygen. Provided with taxi voucher for transport home. CM available if other needs arise. Date Signed: 08/30/2017 11:26 AM Electronically Signed By:Elinor Jeong RN Intervention Information
--- NOTE | 2017-09-04 11:57 | PQFORM ---
PHYSICIAN QUERY FORM Needs Your Response This query form is being sent to you to assure this patient record is coded properly. Please respond to the question below: ACUTE CARE CERTIFIED NURSING ASSISTANT QUESTION: Dear Dr. Spencer, In reviewing this patients medical record it was noted the patient had the diagnosis of 'Sepsis.' Patient presented with fever, Lactate of 2.2, Tachycardia with the diagnosis of 'Pneumonia.' H&P states the patient had the diagnosis of 'Sepsis with Lactate of 2.2 and tachycardia.' In the Hospitalist Progress Notes dated 08/13-08/22 and 08/29-08/30 patient had the diagnosis of ' Sepsis, present on admit.' Also, the 08/24 Infectious disease Progress Note also noted patient had 'Sepsis.' After study, should the diagnosis of "Sepsis" be included in the discharge summary? ____X__ Yes No Unable to determine Other more appropriate diagnosis Thank you [facility] HIM/Coding Dept. [phone] INSTRUCTIONS FOR RESPONSE: Answer question by clicking on the "Edit Document" button. Move cursor to area below the stars. When complete, hit "Save." Click on the "Sign" button, then click "Sign" again. Type in your PIN and hit "Enter." MTDD
== END 2017-08-30 14:17 | disposition home or self-care (01) | DRG 853 ==
LOC: EDUNIT# → F3E 17:37 → F2N 08-18 11:43 → F1N 08-22 17:44
PROVIDERS: ADMIT Internal Medicine; ATTEND Internal Medicine
PROC: 0B9J8ZX Drainage of Left Lower Lung Lobe, Via Natural or Artificial Opening Endoscopic, Diagnostic (ICD-10-PCS; principal; 2017-08-16 14:00)
DX: A41.9 Sepsis, unspecified organism (principal); J13 Pneumonia due to Streptococcus pneumoniae; J96.91 Respiratory failure, unspecified with hypoxia; J43.8 Other emphysema; G62.9 Polyneuropathy, unspecified; Z72.0 Tobacco use
CPT/HCPCS: 84134-90; 87188-90; 87556-90; 96365; 97112-GP; 97116-GP; 97161-GP; 97165-GO; 97530-GO; 97530-GP; 97535-GO; J0696; J1170; J1650; J2250; J2543; J2930; J3010; J3370; Q9967

== ENCOUNTER → 2017-09-20 | Outpatient (CLI) | payer MEDICAID | LOC: FIMAGING 12:38 | PROVIDERS: ATTEND Internal Medicine Infectious Disease | DX: J18.9 Pneumonia, unspecified organism (principal); J43.9 Emphysema, unspecified; I25.10 Atherosclerotic heart disease of native coronary artery without angina pectoris ==